=== PATIENT | male | born 1945 | race Caucasian/White ===

== ENCOUNTER 2016-10-02 09:52 | Outpatient (CLI) | payer MEDICARE, OTHER ==
[2016-10-02 13:57] LABS: BASOPHILS % (AUTO) 0.6 %; EOSINOPHILS # (AUTO) 0.1 10^3/uL (0.0-0.7); EOSINOPHILS % (AUTO) 2.2 %; HCT - HEMATOCRIT 45.7 % (42.0-52.0); HGB - HEMOGLOBIN 15.5 g/dL (14.0-18.0); LYMPHOCYTES % (AUTO) 31.9 %; MEAN CORPUSCULAR HEMOGLOBIN 33.9 pg (27.0-31.0); MEAN CORPUSCULAR HGB CONC 33.9 g/dL (32.0-36.0); MEAN PLATELET VOLUME 9.6 fL (7.4-11.4); MONOCYTES # (AUTO) 0.6 10^3/uL (0.0-1.0); MONOCYTES % (AUTO) 9.3 %; NEUTROPHILS # (AUTO) 3.6 10^3/uL (1.5-6.6); RED BLOOD COUNT 4.57 10^6/uL (4.70-6.10); RED CELL DISTRIBUTION WIDTH 13.5 % (12.0-15.0); UNCORRECTED WHITE BLOOD COUNT 6.3 x10^3/uL; WHITE BLOOD COUNT 6.3 x10^3/uL (4.8-10.8)
[2016-10-02 14:39] LABS: ALBUMIN/GLOBULIN RATIO 1.4 (1.0-2.2); BUN - BLOOD UREA NITROGEN 15 mg/dL (6-20); CALCIUM 9.3 mg/dL (8.5-10.3); CARBON DIOXIDE - CO2 27 mmol/L (21-32); CHLORIDE 103 mmol/L (101-111); CHOL/HDL RATIO 2.9 (<5.0); CHOLESTEROL 180 mg/dL; CREATININE 1.1 mg/dL (0.6-1.2); GFR - MDRD 66 (>89); GLUCOSE 87 mg/dL (70-100); HDL CHOLESTEROL 62 mg/dL; LDL/HDL RATIO 1.4 (<3.6); SODIUM 138 mmol/L (135-145); TOTAL PROTEIN 7.5 g/dL (6.7-8.2); TRIGLYCERIDES 151 mg/dL; URIC ACID 3.9 mg/dL (2.6-7.2); VLDL CHOLESTEROL 30 mg/dL
== END 2016-10-02 09:53 | disposition home or self-care (01) ==
LOC: LAB.N 09:52
PROVIDERS: ATTEND Family Medicine
DX: I10 Essential (primary) hypertension (principal); Z51.81 Encounter for therapeutic drug level monitoring; M10.9 Gout, unspecified
CPT/HCPCS: 36415; 80053; 80061; 84550; 85025

== ENCOUNTER 2017-04-17 08:00 | Outpatient (CLI) | payer MEDICARE, OTHER ==
[2017-04-17 13:06] LABS: BASOPHILS % (AUTO) 0.6 %; EOSINOPHILS # (AUTO) 0.1 10^3/uL (0.0-0.7); EOSINOPHILS % (AUTO) 1.5 %; HGB - HEMOGLOBIN 15.2 g/dL (14.0-18.0); LYMPHOCYTES # (AUTO) 1.6 10^3/uL (1.5-3.5); LYMPHOCYTES % (AUTO) 19.5 %; MEAN CORPUSCULAR HEMOGLOBIN 34.1 pg (27.0-31.0); MEAN CORPUSCULAR HGB CONC 34.1 g/dL (32.0-36.0); MEAN CORPUSCULAR VOLUME 99.8 fL (80.0-94.0); MEAN PLATELET VOLUME 9.8 fL (7.4-11.4); MONOCYTES % (AUTO) 11.9 %; NEUTROPHILS # (AUTO) 5.3 10^3/uL (1.5-6.6); NEUTROPHILS % (AUTO) 66.5 %; PLT - PLATELET COUNT 161 10^3/uL (130-450); RED BLOOD COUNT 4.45 10^6/uL (4.70-6.10); RED CELL DISTRIBUTION WIDTH 13.1 % (12.0-15.0)
[2017-04-17 13:28] LABS: ALBUMIN 4.3 g/dL (3.2-5.5); ALBUMIN/GLOBULIN RATIO 1.4 (1.0-2.2); ALKALINE PHOSPHATASE 57 IU/L (42-121); ALT ALANINE AMINOTRANSFERASE 14 IU/L (10-60); AST ASPARTATE AMINOTRANSFERASE 24 IU/L (10-42); BILIRUBIN,TOTAL 0.9 mg/dL (0.2-1.0); BUN - BLOOD UREA NITROGEN 16 mg/dL (6-20); CARBON DIOXIDE - CO2 25 mmol/L (21-32); CHLORIDE 105 mmol/L (101-111); CHOLESTEROL 174 mg/dL; CREATININE 0.9 mg/dL (0.6-1.2); GFR - MDRD 83 (>89); GLUCOSE 96 mg/dL (70-100); HDL CHOLESTEROL 58 mg/dL; LDL CHOLESTEROL,CALCULATED 89 mg/dL; LDL/HDL RATIO 1.5 (<3.6); SODIUM 137 mmol/L (135-145); TOTAL PROTEIN 7.3 g/dL (6.7-8.2); VLDL CHOLESTEROL 27 mg/dL
== END 2017-04-17 08:01 | disposition home or self-care (01) ==
LOC: LAB.N 08:00
PROVIDERS: ATTEND Family Medicine
DX: I10 Essential (primary) hypertension (principal); E78.9 Disorder of lipoprotein metabolism, unspecified; Z51.81 Encounter for therapeutic drug level monitoring
CPT/HCPCS: 36415; 80053; 80061; 83721; 85025

== ENCOUNTER 2017-10-21 13:52 | Outpatient (CLI) | payer MEDICARE, OTHER ==
--- NOTE | 2017-10-21 15:10 | XRAY Report ---
Procedure Date: 10/21/2017 Accession Number: [id number] / [id number] Procedure: XRN - Chest 2 View X-Ray CPT Code: 81318 FULL RESULT: EXAM: CHEST RADIOGRAPHY EXAM DATE: 10/21/2017 02:15 PM. CLINICAL HISTORY: Dyspnea. COMPARISON: 04/07/2014 11:54 AM. TECHNIQUE: 2 views. FINDINGS: Lungs/Pleura: There is coarse reticular opacity within the left parahilar region and left upper lobe. There is some associated architectural distortion. Costophrenic sulcus blunting may represent small effusions. There is no evidence of pneumothorax. Mediastinum: Heart and mediastinal contours are unremarkable. Other: None. IMPRESSION: 1. Lungs are well-expanded. Normal heart size. 2. There is coarse reticular opacity within the left upper chest. There is some associated architectural distortion. This is suspicious for pneumonia. Interval follow-up film post treatment is recommended to demonstrate resolution of these opacities and to exclude underlying pathology. 3. No evidence of pneumothorax. RADIA
== END 2017-10-21 13:53 | disposition home or self-care (01) ==
LOC: DI.N 13:52
PROVIDERS: ATTEND Nurse Practitioner Gerontology
DX: R06.00 Dyspnea, unspecified (principal)
CPT/HCPCS: 71046

== ENCOUNTER 2017-10-24 09:49 | Outpatient (CLI) | payer MEDICARE, OTHER ==
[2017-10-24 12:14] LABS: BASOPHILS % (AUTO) 0.4 %; EOSINOPHILS # (AUTO) 0.3 10^3/uL (0.0-0.7); EOSINOPHILS % (AUTO) 2.4 %; HGB - HEMOGLOBIN 14.2 g/dL (14.0-18.0); LYMPHOCYTES # (AUTO) 1.1 10^3/uL (1.5-3.5); LYMPHOCYTES % (AUTO) 9.1 %; MEAN CORPUSCULAR HEMOGLOBIN 34.3 pg (27.0-31.0); MEAN CORPUSCULAR VOLUME 100.8 fL (80.0-94.0); MEAN PLATELET VOLUME 8.8 fL (7.4-11.4); MONOCYTES # (AUTO) 1.1 10^3/uL (0.0-1.0); MONOCYTES % (AUTO) 9.5 %; NEUTROPHILS # (AUTO) 9.2 10^3/uL (1.5-6.6); NEUTROPHILS % (AUTO) 78.6 %; PLT - PLATELET COUNT 274 10^3/uL (130-450); RED BLOOD COUNT 4.13 10^6/uL (4.70-6.10); RED CELL DISTRIBUTION WIDTH 13.2 % (12.0-15.0); WHITE BLOOD COUNT 11.7 x10^3/uL (4.8-10.8)
[2017-10-24 19:21] LABS: ALBUMIN 3.4 g/dL (3.2-5.5); ALBUMIN/GLOBULIN RATIO 0.9 (1.0-2.2); ALKALINE PHOSPHATASE 69 IU/L (42-121); ALT ALANINE AMINOTRANSFERASE 52 IU/L (10-60); AST ASPARTATE AMINOTRANSFERASE 39 IU/L (10-42); BILIRUBIN,TOTAL 0.7 mg/dL (0.2-1.0); BUN - BLOOD UREA NITROGEN 18 mg/dL (6-20); CALCIUM 8.8 mg/dL (8.5-10.3); CARBON DIOXIDE - CO2 27 mmol/L (21-32); CHLORIDE 100 mmol/L (101-111); CHOL/HDL RATIO 2.3 (<5.0); CHOLESTEROL 144 mg/dL; CREATININE 0.9 mg/dL (0.6-1.2); GFR - MDRD 83 (>89); GLUCOSE 71 mg/dL (70-100); HDL CHOLESTEROL 63 mg/dL; LDL CHOLESTEROL,CALCULATED 66 mg/dL; SODIUM 134 mmol/L (135-145); TOTAL PROTEIN 7.1 g/dL (6.7-8.2); VLDL CHOLESTEROL 15 mg/dL
== END 2017-10-24 09:50 | disposition home or self-care (01) ==
LOC: LAB.N 09:49
PROVIDERS: ATTEND Family Medicine
DX: E78.5 Hyperlipidemia, unspecified (principal); I10 Essential (primary) hypertension
CPT/HCPCS: 36415; 80053; 80061; 83721; 85025

== ENCOUNTER 2017-10-30 12:11 | Outpatient (CLI) | payer MEDICARE, OTHER ==
--- NOTE | 2017-10-30 13:27 | XRAY Report ---
Procedure Date: 10/30/2017 Accession Number: [id number] / [id number] Procedure: XRN - Chest 2 View X-Ray CPT Code: 94318 FULL RESULT: EXAM: CHEST RADIOGRAPHY EXAM DATE: 10/30/2017 12:28 PM. CLINICAL HISTORY: Dyspnea. COMPARISON: 10/21/2017 chest x-ray, 03/21/[address] TECHNIQUE: 2 views. FINDINGS: Lungs/Pleura: Coarse left upper lobe reticulation has not changed appreciably compared to the prior study. A faint air-fluid level is present adjacent to the left hilum which may reflect an infected bulla. The right lung is clear. No definite pleural effusion or pneumothorax. Mediastinum: Heart and mediastinal contours are unremarkable. Other: Bony demineralization and degenerative change in the spine IMPRESSION: Persistent abnormal chest x-ray not appreciably changed compared with 10/21/2017. Consider further evaluation by chest CT. RADIA
== END 2017-10-30 12:12 | disposition home or self-care (01) ==
LOC: DI.N 12:11
PROVIDERS: ATTEND Family Medicine
DX: R06.00 Dyspnea, unspecified (principal); R93.8 Abnormal findings on diagnostic imaging of other specified body structures
CPT/HCPCS: 71046

== ENCOUNTER 2017-10-31 14:47 | Outpatient (CLI) | payer MEDICARE, OTHER ==
--- NOTE | 2017-10-31 15:48 | CT Report ---
Reason: ABNORMAL CHEST XRAY,LUNG ABSCESS,COPD,ACUTE EXACER Procedure Date: 10/31/2017 Accession Number: [id number] / [id number] Procedure: CT - Chest W/O CPT Code: FULL RESULT: EXAM: CT CHEST EXAM DATE: 10/31/2017 03:02 PM. CLINICAL HISTORY: Follow-up abnormal chest x-ray 10/30/2017 with possible air-fluid level left chest COMPARISONS: Chest CT 03/21/2014 and chest x-ray 10/30/2017. TECHNIQUE: Routine helical CT imaging was performed through the chest. IV contrast: None. Reconstructions: Coronal and sagittal. In accordance with CT protocol optimization, one or more of the following dose reduction techniques were utilized for this exam: automated exposure control, adjustment of mA and/or KV based on patient size, or use of iterative reconstructive technique. FINDINGS: Lungs/Pleura: Advanced emphysematous changes including hyperexpansion, centrilobular emphysema, peripheral bulla formation, chronic interstitial thickening and subpleural cysts. There is left upper lobe volume loss with multiple cystic spaces admixed with soft tissue density/consolidation and air bronchograms, improved compared with 03/21/2014. The largest cystic space measures approximately 4.3 x 3.7 cm axial. The left upper lobe findings are likely the sequela of prior inflammation and chronic scarring. The possible air bronchogram seen on the prior chest x-ray is not confirmed by chest CT. There is no pleural effusion or pneumothorax. Mediastinum: Several scattered nonspecific mediastinal lymph nodes are present. No pathologically enlarged mediastinal or hilar lymph nodes are seen. Heart size is normal. No pericardial effusion. Bones: Generative change in the spine without bone destruction. Included upper Abdomen: Small hiatal hernia Other: None. IMPRESSION: Extensive emphysematous change throughout the lungs with left upper lobe volume loss, cyst formation, and scarring secondary to prior infection/inflammation. No definite findings to suggest a superimposed acute process are seen at this time. Comment: The extensive changes in the left upper lobe could obscure an underlying pulmonary nodule. RADIA
== END 2017-10-31 14:48 | disposition home or self-care (01) ==
LOC: DI 14:47
PROVIDERS: ATTEND Family Medicine
DX: J44.1 Chronic obstructive pulmonary disease with (acute) exacerbation (principal); J18.0 Bronchopneumonia, unspecified organism; R91.8 Other nonspecific abnormal finding of lung field
CPT/HCPCS: 71250

== ENCOUNTER 2017-11-05 23:27 | Emergency (ER) | payer MEDICARE, OTHER ==
[2017-11-06] MEDS ORDERED: IOPAMIDOL-300 100 ML VIAL ONE (00:12)
[2017-11-06 00:18] LABS: BILIRUBIN,URINE NEGATIVE (NEGATIVE); GLUCOSE, URINE (UA) NEGATIVE (NEGATIVE); KETONES,URINE (UA) TRACE mg/dL (NEGATIVE); LEUKOCYTE ESTERASE, URINE NEGATIVE (NEGATIVE); NITRITE,URINE NEGATIVE (NEGATIVE); OCCULT BLOOD,URINE NEGATIVE (NEGATIVE); PROTEIN,URINE NEGATIVE (NEGATIVE); UROBILINOGEN,URINE 0.2 (NORMAL) E.U./dL (NORMAL)
[2017-11-06 00:19] LABS: CLARITY,URINE CLEAR (CLEAR)
[2017-11-06 00:19] LABS: BASOPHILS # (AUTO) 0.1 10^3/uL (0.0-0.1); BASOPHILS % (AUTO) 1.2 %; EOSINOPHILS # (AUTO) 0.5 10^3/uL (0.0-0.7); EOSINOPHILS % (AUTO) 7.5 %; HGB - HEMOGLOBIN 12.7 g/dL (14.0-18.0); LYMPHOCYTES # (AUTO) 1.3 10^3/uL (1.5-3.5); LYMPHOCYTES % (AUTO) 19.3 %; MEAN CORPUSCULAR HEMOGLOBIN 34.3 pg (27.0-31.0); MEAN CORPUSCULAR HGB CONC 34.9 g/dL (32.0-36.0); MEAN CORPUSCULAR VOLUME 98.3 fL (80.0-94.0); MEAN PLATELET VOLUME 8.3 fL (7.4-11.4); MONOCYTES # (AUTO) 0.7 10^3/uL (0.0-1.0); MONOCYTES % (AUTO) 11.3 %; NEUTROPHILS % (AUTO) 60.7 %; PLT - PLATELET COUNT 242 10^3/uL (130-450); RED BLOOD COUNT 3.69 10^6/uL (4.70-6.10); RED CELL DISTRIBUTION WIDTH 13.1 % (12.0-15.0); WHITE BLOOD COUNT 6.6 x10^3/uL (4.8-10.8)
[2017-11-06 00:28] LABS: ALBUMIN 3.1 g/dL (3.2-5.5); ALBUMIN/GLOBULIN RATIO 0.9 (1.0-2.2); BILIRUBIN,TOTAL 0.8 mg/dL (0.2-1.0); CALCIUM 8.5 mg/dL (8.5-10.3); CREATININE 1.1 mg/dL (0.6-1.2); TOTAL PROTEIN 6.7 g/dL (6.7-8.2)
[2017-11-06] MEDS ORDERED: IOPAMIDOL-300 100 ML VIAL IVP ONE (00:48)
--- NOTE | 2017-11-06 01:10 | CT Report ---
Reason: right lower quadrant pain Procedure Date: 11/06/2017 Accession Number: [id number] / [id number] Procedure: CT - Abdomen/Pelvis W/ CPT Code: FULL RESULT: EXAM: CT ABDOMEN AND PELVIS EXAM DATE: 11/06/2017 12:50 AM. CLINICAL HISTORY: Abdominal pain with nausea and vomiting. COMPARISONS: ABDOMEN/PELVIS W/ 02/13/2016. TECHNIQUE: Routine helical CT imaging was performed through the abdomen and pelvis. IV contrast: ISOVUE 300 100mL. Enteric contrast: No. Reconstructions: Coronal and sagittal. In accordance with CT protocol optimization, one or more of the following dose reduction techniques were utilized for this exam: automated exposure control, adjustment of mA and/or KV based on patient size, or use of iterative reconstructive technique. FINDINGS: Lung Bases: Emphysema. Mild bibasilar atelectasis. Small hiatal hernia. Liver: Possible fatty infiltration. Gallbladder/Bile Ducts: Unremarkable. Spleen: Normal. Pancreas: Normal. Adrenal Glands: Normal. Kidneys: Normal. No masses or hydronephrosis. Peritoneal Cavity/Bowel: Duodenal diverticulum. Colonic diverticula without definite diverticulitis. No bowel obstruction seen. No free air or free fluid. No lymphadenopathy. Status post appendectomy. Pelvic Organs: Normal. The bladder and visualized pelvic organs are within normal limits. Vasculature: Moderate atherosclerosis. Infrarenal saccular aortic aneurysm measuring 3.0 cm. Bones: Osteopenia. Mild grade 1 degenerative spondylolisthesis at L4-L5. Other: None. IMPRESSION: 1. Colonic diverticula with no definite diverticulitis. 2. Status post appendectomy. No acute inflammatory or obstructive process identified. 3. Possible mild fatty liver. 4. Hiatal hernia. 5. Small saccular infrarenal aortic aneurysm measuring 3.0 cm. RADIA
[2017-11-06] MEDS ORDERED: DICYCLOMINE 10 MG CAPSULE PO STA (01:23)
[2017-11-06] MEDS ORDERED: ONDANSETRON ODT 4 MG TABLET TL STA (01:23)
[2017-11-06 01:27] VITALS: BP 133/70
--- NOTE | 2017-11-06 01:40 | ED Physician Documentation ---
PD HPI ABD PAIN - Stated complaint Stated Complaint: ABDOMINAL PAIN - Chief complaint Chief Complaint: Abd Pain - History obtained from History obtained from: Patient - History of Present Illness Timing - onset: Today Timing - details: Gradual onset, Still present Quality: Aching, Sharp Location: RLQ Worsened by: Position, Palpation Associated symptoms: Nausea. No: Fever, Vomiting, Hematemesis, Diarrhea, Constipation Similar symptoms before: Work up / diagnostics, Treatment Recently seen: Not recently seen - Additional information Additional information: Patient is a 71 year old male who is presenting to the emergency department for abdominal pain. patient states that ever since he had his appendix taken out he has had intermittent right lower quadrant pain. patient states that he had not had the pain in about 6 months but tonight he had the right sided pain with nausea. Review of Systems Ten Systems: 10 systems reviewed and negative Constitutional: denies: Fever, Chills GI: reports: Abdominal Pain, Nausea. denies: Abdominal Swelling, Constipation PD PAST MEDICAL HISTORY - Past Medical History Past Medical History: Yes Cardiovascular: Hypertension Respiratory: COPD, Emphysema, Other Endocrine/Autoimmune: None GI: Ulcers : None Psych: None Musculoskeletal: Osteoarthritis Derm: None - Past Surgical History Past Surgical History: Yes Ortho: Other HEENT: Tonsil/Adenoidectomy - Present Medications Home Medications: Ambulatory Orders Medication Instructions Recorded Confirmed Aspirin [Aspir 81] 81 mg PO DAILY 08/18/12 02/13/16 Esomeprazole Magnesium [Nexium] 40 mg PO DAILY 08/18/12 02/13/16 Simvastatin [Zocor] 0 mg PO DAILY 08/18/12 02/13/16 Fluticasone/Salmeterol [Advair 2 tab PO DAILY 03/20/14 02/13/16 100-50 Diskus] Tiotropium [Spiriva] 1 puffs INH DAILY 03/20/14 02/13/16 Albuterol Oral Soln 2 mg PO Q6H 02/13/16 02/13/16 Allopurinol [Zyloprim] 300 mg PO DAILY 02/13/16 02/13/16 Cholecalciferol (Vitamin D3) 2,000 unit PO DAILY 02/13/16 02/13/16 [Vitamin D3] Cyanocobalamin (Vitamin B-12) 1,000 mcg PO DAILY 02/13/16 02/13/16 [Vitamin B-12] Felodipine [Felodipine ER] 10 mg PO DAILY 02/13/16 02/13/16 Ferrous Gluconate [Iron] 65 mg PO 02/13/16 Meloxicam 7.5 mg PO DAILY 02/13/16 02/13/16 [place]-3/Dha/Epa/Fish Oil [Fish Oil 1 cap PO DAILY 02/13/16 02/13/16 1,000 mg Softgel] Simvastatin [Zocor] 10 mg PO DAILY 02/13/16 02/13/16 Zinc Oxide [Vitamelts Fast 15 mg PO DAILY 02/13/16 02/13/16 Dissolve] HYDROcod/ACETAM 5/325 [[place] 5/325] 1 tab PO Q4HR PRN #30 tablet 02/14/16 Ipratropium/Albuterol [Duoneb] 3 ml INH Q4HR PRN #0 neb 02/14/16 Polyethylene Glycol 3350 [Miralax] 17 gm PO DAILY packet 02/14/16 amLODIPine [Norvasc] 10 mg PO DAILY tablet 02/14/16 Dicyclomine [Bentyl] 10 mg PO QID #14 capsule 11/06/17 Ondansetron Odt [Zofran] 4 mg TL Q6H PRN #14 tablet 11/06/17 - Allergies Allergies/Adverse Reactions: Allergies Allergy/AdvReac Type Severity Reaction Status Date / Time No Known Drug Allergies Allergy Verified 11/05/17 23:38 - Social History Does the pt smoke?: No Smoking Status: Never smoker Does the pt drink ETOH?: Yes Does the pt have substance abuse?: No - Immunizations Immunizations are current?: Yes PD ED PE NORMAL - Vitals Vital signs reviewed: Yes - General General: Alert and oriented X 3 - HEENT HEENT: Atraumatic, PERRL - Cardiac Cardiac: RRR - Respiratory Respiratory: No respiratory distress - Abdomen Abdomen: Soft - Derm Derm: Normal color, Warm and dry, No rash - Extremities Extremities: No deformity - Neuro Neuro: Alert and oriented X 3, No motor deficit, Normal speech Eye Opening: Spontaneous PD ED PE EXPANDED - Abdomen Abdomen: Tender to palpation, RLQ. No: Rebound, Guarding Results - Vitals Vitals: Vital Signs - 24 hr 11/05/17 11/06/17 23:32 01:27 Temperature 36.5 C 36.9 C Heart Rate 92 80 Respiratory 18 20 Rate Blood Pressure 119/63 133/70 H O2 Saturation 95 94 Oxygen O2 Source Room air - Labs Labs: Laboratory Tests 11/06/17 11/06/17 11/06/17 00:00 00:00 00:05 WBC 6.6 RBC 3.69 L Hgb 12.7 L Hct 36.3 L MCV 98.3 H MCH 34.3 H MCHC 34.9 RDW 13.1 Plt Count 242 MPV 8.3 Neut # (Auto) 4.0 Lymph # (Auto) 1.3 L [place] # (Auto) 0.7 Eos # (Auto) 0.5 Baso # (Auto) 0.1 Absolute Nucleated RBC 0.00 Nucleated RBC % 0.1 Sodium 134 L Potassium 3.7 Chloride 103 Carbon Dioxide 23 Anion Gap 8.0 BUN 14 Creatinine 1.1 Estimated GFR (MDRD) 66 L Glucose 99 Calcium 8.5 Total Bilirubin 0.8 AST 29 ALT 22 Alkaline Phosphatase 80 Total Protein 6.7 Albumin 3.1 L Globulin 3.6 Albumin/Globulin Ratio 0.9 L Lipase 36 Urine Color YELLOW Urine Clarity CLEAR Urine pH 6.0 Ur Specific [place] 1.020 Urine Protein NEGATIVE Urine Glucose (UA) NEGATIVE Urine Ketones TRACE Urine Occult Blood NEGATIVE Urine Nitrite NEGATIVE Urine Bilirubin NEGATIVE Urine Urobilinogen 0.2 (NORMAL) Ur Leukocyte Esterase NEGATIVE Ur Microscopic Review NOT INDICATED Urine Culture Comments NOT INDICATED - Rads (name of study) ct abd and pelvis Radiology: Final report received (no acute intraabdominal abnormalities) PD MEDICAL DECISION MAKING - ED course Complexity details: reviewed old records, reviewed results, re-evaluated patient , considered differential, d/w patient ED course: Patient was seen and examined at bedside. IV access was gained and labs were drawn. Imaging was ordered. When patient returned from imaging results were reviewed. There were no significant abnormalities. patient was treated with bentyl and zofran. patient required no further work up at this time and was stable for discharge with outpatient follow up. - Sepsis Event Vital Signs: Vital Signs - 24 hr 11/05/17 11/06/17 23:32 01:27 Temperature 36.5 C 36.9 C Heart Rate 92 80 Respiratory 18 20 Rate Blood Pressure 119/63 133/70 H O2 Saturation 95 94 Oxygen O2 Source Room air Departure - Departure Disposition: 01 Home, Self Care Clinical Impression: Abdominal pain Condition: Good Instructions: ED Abdominal Pain Unkn Cause Follow-Up: Peter Perkins MD [Primary Care Provider] - Prescriptions: Dicyclomine [Bentyl] 10 mg PO QID #14 capsule Ondansetron Odt [Zofran] 4 mg TL Q6H PRN #14 tablet PRN Reason: Nausea / Vomiting Comments: Your diagnostics today were within normal limits. there were no acute abnormalities on your blood work or imaging. the pain could be secondary to the scar tissue or gas pain. You can take the zofran as needed for nausea and bentyl for abdominal spasm. You should follow up with your doctor if your symptoms persist. You may return to the emergency department at an time for new , worsening or uncontrollable symptoms. Discharge Date/Time: 11/06/17 01:59
== END 2017-11-06 01:59 | disposition home or self-care (01) ==
LOC: ED 23:27
DX: R10.9 Unspecified abdominal pain (principal); R11.0 Nausea; I10 Essential (primary) hypertension; Z79.82 Long term (current) use of aspirin; K57.30 Diverticulosis of large intestine without perforation or abscess without bleeding; K44.9 Diaphragmatic hernia without obstruction or gangrene; I71.4 Abdominal aortic aneurysm, without rupture
CPT/HCPCS: 36415; 74177; 80053; 81003; 83690; 85025; 99283; A9270; Q0162; Q9967; 81001; 87086

== ENCOUNTER 2017-11-07 09:00 | Outpatient (CLI) | payer MEDICARE, OTHER | END 2017-11-07 09:01 | disposition home or self-care (01) | LOC: LAB.R 09:00 | PROVIDERS: ATTEND Internal Medicine Critical Care Medicine | DX: J20.9 Acute bronchitis, unspecified (principal) | CPT/HCPCS: 81599; 87070; 87205 ==

== ENCOUNTER 2018-10-14 08:00 | Outpatient (CLI) | payer MEDICARE, OTHER ==
[2018-10-14 12:31] LABS: BASOPHILS % (AUTO) 0.5 %; EOSINOPHILS # (AUTO) 0.2 10^3/uL (0.0-0.7); EOSINOPHILS % (AUTO) 2.2 %; HGB - HEMOGLOBIN 15.2 g/dL (14.0-18.0); LYMPHOCYTES # (AUTO) 1.3 10^3/uL (1.5-3.5); LYMPHOCYTES % (AUTO) 17.5 %; MEAN CORPUSCULAR HEMOGLOBIN 33.7 pg (27.0-31.0); MEAN PLATELET VOLUME 11.4 fL (7.4-11.4); MONOCYTES # (AUTO) 0.6 10^3/uL (0.0-1.0); MONOCYTES % (AUTO) 8.4 %; NEUTROPHILS # (AUTO) 5.1 10^3/uL (1.5-6.6); PLT - PLATELET COUNT 183 10^3/uL (130-450); RED BLOOD COUNT 4.51 10^6/uL (4.70-6.10); WHITE BLOOD COUNT 7.3 x10^3/uL (4.8-10.8)
[2018-10-14 13:06] LABS: ALBUMIN 4.1 g/dL (3.2-5.5); ALBUMIN/GLOBULIN RATIO 1.4 (1.0-2.2); ALKALINE PHOSPHATASE 60 IU/L (42-121); ALT ALANINE AMINOTRANSFERASE 15 IU/L (10-60); AST ASPARTATE AMINOTRANSFERASE 21 IU/L (10-42); BILIRUBIN,TOTAL 1.1 mg/dL (0.2-1.0); BUN - BLOOD UREA NITROGEN 17 mg/dL (6-20); CALCIUM 9.3 mg/dL (8.5-10.3); CARBON DIOXIDE - CO2 26 mmol/L (21-32); CHLORIDE 103 mmol/L (101-111); CHOL/HDL RATIO 2.2 (<5.0); CHOLESTEROL 175 mg/dL; CREATININE 0.9 mg/dL (0.6-1.2); GFR - MDRD 82 (>89); GLUCOSE 106 mg/dL (70-100); HDL CHOLESTEROL 79 mg/dL; LDL CHOLESTEROL,CALCULATED 84 mg/dL; LDL/HDL RATIO 1.1 (<3.6); SODIUM 141 mmol/L (135-145); TOTAL PROTEIN 7.1 g/dL (6.7-8.2); VLDL CHOLESTEROL 12 mg/dL
== END 2018-10-14 23:59 | disposition home or self-care (01) ==
LOC: LAB.N 08:00
PROVIDERS: ATTEND Physician Assistant Medical
DX: E78.5 Hyperlipidemia, unspecified (principal); I10 Essential (primary) hypertension
CPT/HCPCS: 36415; 80053; 80061; 83721; 84443; 85025

== ENCOUNTER 2019-01-16 15:11 | Emergency (ER) | payer MEDICARE, OTHER ==
--- NOTE | 2019-01-16 17:22 | ED Physician Documentation ---
PD HPI HEENT - Stated complaint Stated Complaint: RT NASAL PASSAGE OBSTRUCTION - Chief complaint Chief Complaint: Heent - History obtained from History obtained from: Patient - History of Present Illness Timing - onset: Today Timing - duration: Hours (2) Timing - details: Abrupt onset Pain level now: 0 Location: Nose Recently seen: Not recently seen - Additional information Additional information: This is a 73-year-old man who frequently uses a plastic nasal cost controller in his nostrils. They are normally connected with a tab between the 2 expanders but he does not like it on the outside of his nose so he breaks it off and puts one in each side. He says he is done this for years and never had a problem but then he put one in today and about 2 hours ago he went to get it out and he could not pull it out and shoved it back and further. He denies any pain. He did get a little bit of blood when he was trying to remove it he thinks he scratched the inside of his nose. Not really having any difficulty breathing but he says he d oes have COPD and so he feels like it is affecting that a little bit. Review of Systems Constitutional: denies: Fever Nose: reports: Foreign Body. denies: Epistaxis PD PAST MEDICAL HISTORY - Past Medical History Cardiovascular: Hypertension Respiratory: COPD, Emphysema, Other Endocrine/Autoimmune: None GI: Ulcers : None Psych: None Musculoskeletal: Osteoarthritis Derm: None - Past Surgical History Past Surgical History: Yes Ortho: Other HEENT: Tonsil/Adenoidectomy - Present Medications Home Medications: Ambulatory Orders Medication Instructions Recorded Confirmed Aspirin [Aspir 81] 81 mg PO DAILY 08/18/12 02/13/16 Esomeprazole Magnesium [Nexium] 40 mg PO DAILY 08/18/12 02/13/16 Simvastatin [Zocor] 0 mg PO DAILY 08/18/12 02/13/16 Fluticasone/Salmeterol [Advair 2 tab PO DAILY 03/20/14 02/13/16 100-50 Diskus] Tiotropium [Spiriva] 1 puffs INH DAILY 03/20/14 02/13/16 Albuterol Oral Soln 2 mg PO Q6H 02/13/16 02/13/16 Allopurinol [Zyloprim] 300 mg PO DAILY 02/13/16 02/13/16 Cholecalciferol (Vitamin D3) 2,000 unit PO DAILY 02/13/16 02/13/16 [Vitamin D3] Cyanocobalamin (Vitamin B-12) 1,000 mcg PO DAILY 02/13/16 02/13/16 [Vitamin B-12] Felodipine [Felodipine ER] 10 mg PO DAILY 02/13/16 02/13/16 Ferrous Gluconate [Iron] 65 mg PO 02/13/16 Meloxicam 7.5 mg PO DAILY 02/13/16 02/13/16 [place]-3/Dha/Epa/Fish Oil [Fish Oil 1 cap PO DAILY 02/13/16 02/13/16 1,000 mg Softgel] Simvastatin [Zocor] 10 mg PO DAILY 02/13/16 02/13/16 Zinc Oxide [Vitamelts Fast 15 mg PO DAILY 02/13/16 02/13/16 Dissolve] HYDROcod/ACETAM 5/325 [[place] 5/325] 1 tab PO Q4HR PRN #30 tablet 02/14/16 Ipratropium/Albuterol [Duoneb] 3 ml INH Q4HR PRN #0 neb 02/14/16 Polyethylene Glycol 3350 [Miralax] 17 gm PO DAILY packet 02/14/16 amLODIPine [Norvasc] 10 mg PO DAILY tablet 02/14/16 Dicyclomine [Bentyl] 10 mg PO QID #14 capsule 11/06/17 Ondansetron Odt [Zofran] 4 mg TL Q6H PRN #14 tablet 11/06/17 - Allergies Allergies/Adverse Reactions: Allergies Allergy/AdvReac Type Severity Reaction Status Date / Time No Known Drug Allergies Allergy Verified 01/16/19 15:19 - Social History Does the pt smoke?: No Smoking Status: Never smoker Does the pt drink ETOH?: Yes Does the pt have substance abuse?: No - Immunizations Immunizations are current?: Yes PD ED PE NORMAL - Vitals Vital signs reviewed: Yes - General General: Alert and oriented X 3, No acute distress, Well developed/nourished - HEENT HEENT: Other (There is a plastic foreign body in the nose quite deep past the turbinates) - Respiratory Respiratory: No respiratory distress - Derm Derm: Normal color, Warm and dry, No rash Results - Vitals Vitals: Vital Signs - 24 hr 01/16/19 15:16 Temperature 36.4 C L Heart Rate 87 Respiratory 17 Rate Blood Pressure 149/68 H O2 Saturation 93 Oxygen O2 Source Room air Procedures - FB removal FB location: Nose FB removal preparation: Local anesthesia-specify (Tetracaine), Afrin Removal method: Foreceps FB removal aftercare: No complications, Patient tolerated well, Removed successfully PD MEDICAL DECISION MAKING - ED course Complexity details: d/w patient ED course: Patient tolerated the procedure well. There was no blood. I counseled him about removing the tab that prevents this from going further into the nose. Departure - Departure Disposition: 01 Home, Self Care Clinical Impression: Foreign body in nose Qualifiers: Encounter type: initial encounter Qualified Code(s): T17.1XXA - Foreign body in nostril, initial encounter Condition: Good Instructions: ED Foreign Body Nasal Follow-Up: Pankaj Cervantes PA-C [Primary Care Provider] - Comments: Be careful placing things in your nose that can be pushed back up in there.
[2019-01-16] MEDS ORDERED: TETRACAINE 0.5% OPHTH DROPS 4 ML RIGHTEYE ONE (17:28)
[2019-01-16] MEDS ORDERED: OXYMETAZOLINE HCL 100 SPRAYS BOTTLE NAS STA (17:29)
[2019-01-16 18:36] VITALS: BP 137/74
== END 2019-01-16 18:36 | disposition home or self-care (01) ==
LOC: ED 15:11
DX: T17.1XXA Foreign body in nostril, initial encounter (principal); X58.XXXA Exposure to other specified factors, initial encounter; J43.9 Emphysema, unspecified; I10 Essential (primary) hypertension; Z79.82 Long term (current) use of aspirin
CPT/HCPCS: 30300; 99282; A9270

== ENCOUNTER 2019-04-17 11:46 | Inpatient (IN) | payer MEDICARE, OTHER ==
[2019-04-17] MEDS ORDERED: methylPREDNISolone SUCCINATE 125 MG/2 ML VIAL IVP STA (12:13)
[2019-04-17] MEDS ORDERED: cefTRIAXone 2 GM in SODIUM CHLORIDE 0.9% MINIBAG 100 ML IV STA (12:13)
[2019-04-17] MEDS ORDERED: LEVALBUTEROL 1.25 MG/3 ML NEB INH STA (12:13)
[2019-04-17] MEDS ORDERED: IPRATROPIUM/ALBUTEROL 3 ML NEB INH STA (12:13)
--- NOTE | 2019-04-17 12:15 | ED Physician Documentation ---
PD HPI DYSPNEA - Stated complaint Stated Complaint: SOA - Chief complaint Chief Complaint: Resp - History obtained from History obtained from: Patient (73-year-old gentleman with oxygen dependent COPD presents with increased shortness of breath and minimally productive cough for the last 6 days. Its associated with a fever to 100.2 last night which defervesced today. His oxygen requirement has gone from 3 L which is his baseline to 5 L. He was recently on a steroid taper and is now on prednisone at 10 mg a day. Cough is productive of minimal white to clear sputum. He denies any chest pain or pedal edema.) Review of Systems Ten Systems: 10 systems reviewed and negative Constitutional: reports: Fever, Chills Throat: denies: Sore throat Cardiac: denies: Chest pain / pressure, Palpitations, Pedal edema, Calf pain Respiratory: reports: Dyspnea, Cough, Wheezing. denies: Hemoptysis GI: denies: Abdominal Pain PD PAST MEDICAL HISTORY - Past Medical History Past Medical History: Yes Cardiovascular: Hypertension Respiratory: COPD, Emphysema, Other Endocrine/Autoimmune: None GI: Ulcers : None Psych: None Musculoskeletal: Osteoarthritis Derm: None - Past Surgical History Past Surgical History: Yes Ortho: Other HEENT: Tonsil/Adenoidectomy - Present Medications Home Medications: Ambulatory Orders Medication Instructions Recorded Confirmed Aspirin [Aspir 81] 81 mg PO DAILY 08/18/12 04/17/19 Allopurinol [Zyloprim] 300 mg PO DAILY 02/13/16 04/17/19 Cholecalciferol (Vitamin D3) 2,000 unit PO DAILY 02/13/16 04/17/19 [Vitamin D3] Cyanocobalamin (Vitamin B-12) 1,000 mcg PO DAILY 02/13/16 04/17/19 [Vitamin B-12] Felodipine [Felodipine ER] 10 mg PO DAILY 02/13/16 04/17/19 Ferrous Gluconate [Iron] 65 mg PO DAILYWM 02/13/16 04/17/19 [place]-3/Dha/Epa/Fish Oil [Fish Oil 1 cap PO DAILY 02/13/16 04/17/19 1,000 mg Softgel] Simvastatin [Zocor] 10 mg PO QPM 02/13/16 04/17/19 Albuterol 2.5 mg INH Q4H PRN 04/17/19 04/17/19 Albuterol Sulfate [Proair Hfa 2 puffs INH Q4H PRN 04/17/19 04/17/19 Inhaler] Diclofenac Sodium 2 g TOP BID PRN 04/17/19 04/17/19 Duloxetine HCl 60 mg PO DAILY 04/17/19 04/17/19 Fluticasone/Salmeterol [Advair 1 puffs INH BID 04/17/19 04/17/19 250-50 Diskus] Loratadine [Claritin] 10 mg PO DAILY 04/17/19 04/17/19 Montelukast [Singulair] 10 mg PO QPM 04/17/19 04/17/19 Omeprazole 20 mg PO BID 04/17/19 04/17/19 Sildenafil Citrate [Viagra] 100 mg PO DAILY PRN 04/17/19 04/17/19 Tiotropium [place] [Spiriva 2 puffs INH DAILY 04/17/19 04/17/19 Respimat] polyethylene glycoL 3350 [Miralax] 17 gm PO DAILY PRN 04/17/19 04/17/19 predniSONE [Deltasone] 10 mg PO DAILYWM 04/17/19 04/17/19 traZODone [Desyrel] 50 mg PO HS PRN 04/17/19 04/17/19 - Allergies Allergies/Adverse Reactions: Allergies Allergy/AdvReac Type Severity Reaction Status Date / Time No Known Drug Allergies Allergy Verified 04/17/19 12:03 - Social History Does the pt smoke?: No Smoking Status: Former smoker Does the pt drink ETOH?: Yes Does the pt have substance abuse?: No - Immunizations Immunizations are current?: Yes - POLST Patient has POLST: No PD ED PE NORMAL - Vitals Vital signs reviewed: Yes (Tachycardic, hypoxic, tachypneic) - General General: Alert and oriented X 3, No acute distress, Other (He looks better than the triage vitals would portend, he is minimally tachypneic. Speaking in full sentences but not full paragraphs.) - HEENT HEENT: PERRL, EOMI - Neck Neck: Supple, no meningeal sign, No bony TTP - Cardiac Cardiac: RRR, No murmur - Respiratory Respiratory: Other (Mild respiratory distress, speaking in full sentences but not full paragraphs, diminished throughout without significant focal findings.) - Abdomen Abdomen: Non tender - Back Back: No CVA TTP, No spinal TTP - Derm Derm: Normal color - Extremities Extremities: No edema, No calf tenderness / cord - Neuro Neuro: Alert and oriented X 3, Normal speech Results - Vitals Vitals: Vital Signs - 24 hr 04/17/19 04/17/19 04/17/19 12:04 12:13 12:20 Temperature 37.1 C Heart Rate 125 H 107 H 96 Respiratory 36 H 30 H 18 Rate Blood Pressure 125/78 129/77 O2 Saturation 78 L 95 04/17/19 04/17/19 04/17/19 12:36 13:06 13:30 Temperature Heart Rate 96 94 93 Respiratory 24 24 20 Rate Blood Pressure 126/68 127/80 128/78 O2 Saturation 94 93 93 Oxygen O2 Source Nasal cannula Oxygen Flow Rate 3 - EKG (time done) 1223 Rate: Rate (enter#) (94) Rhythm: NSR (w pac) [place]: Normal Intervals: RBBB, Other (LAFB) Ischemia: Normal ST segments Computer interpretation: Agree with computer - Labs Labs: Laboratory Tests 04/17/19 04/17/19 04/17/19 12:12 12:12 12:12 WBC 9.3 RBC 4.76 Hgb 16.3 Hct 47.3 MCV 99.4 H MCH 34.2 H MCHC 34.5 RDW 12.8 Plt Count 194 MPV 10.5 Neut # (Auto) 8.2 H Lymph # (Auto) 0.5 L [place] # (Auto) 0.5 Eos # (Auto) 0.0 Baso # (Auto) 0.0 Absolute Nucleated RBC 0.00 Nucleated RBC % 0.0 VBG pH VBG pCO2 VBG pO2 VBG HCO3 VBG Total CO2 VBG O2 Saturation VBG Base Excess Sodium 138 Potassium 4.7 Chloride 98 L Carbon Dioxide 24 Anion Gap 16.0 H BUN 23 H Creatinine 1.1 Estimated GFR (MDRD) 65 L Glucose 120 H Lactic Acid 2.9 H Calcium 9.6 Total Bilirubin 1.0 AST 50 H ALT 26 Alkaline Phosphatase 62 Troponin I High Sens Total Protein 8.1 Albumin 4.5 Globulin 3.6 Albumin/Globulin Ratio 1.3 Lipase 30 Influenza A (Rapid) Influenza B (Rapid) 04/17/19 04/17/19 04/17/19 12:13 13:05 13:15 WBC RBC Hgb Hct MCV MCH MCHC RDW Plt Count MPV Neut # (Auto) Lymph # (Auto) [place] # (Auto) Eos # (Auto) Baso # (Auto) Absolute Nucleated RBC Nucleated RBC % VBG pH 7.471 H VBG pCO2 33.1 L VBG pO2 65.5 H VBG HCO3 23.6 VBG Total CO2 24.6 VBG O2 Saturation 94.1 H VBG Base Excess 0.7 Sodium Potassium Chloride Carbon Dioxide Anion Gap BUN Creatinine Estimated GFR (MDRD) Glucose Lactic Acid Calcium Total Bilirubin AST ALT Alkaline Phosphatase Troponin I High Sens 14.9 Total Protein Albumin Globulin Albumin/Globulin Ratio Lipase Influenza A (Rapid) Negative Influenza B (Rapid) Negative - Rads (name of study) 1v chest Radiology: EMP read contemporaneously (GILDARDO GOMEZ) PD MEDICAL DECISION MAKING - ED course ED course: 73-year-old gentleman with COPD presents with increased productive cough, fever last night and respiratory distress and is found to have pneumonia which is treated with Rocephin and Zithromax. Had 3 nebs in the department here as well as IV Solu-Medrol and still mildly labored breathing and tachycardia. Spoke with Dr. Bullock for admission at 1:40 PM. - Critical Care Time(min): 38 Time Includes: Direct patient care, Review records, Reassess patient, Document care, Coordinate care, Medical consult Data interpretation: Labs, Pulse ox, ABG, CXR Procedures included in critical care time: Peripheral IV Procedures excluded from critical care time: EKG Departure - Departure Disposition: 66 [facility] DC/Xfer Clinical Impression: Pneumonia COPD (chronic obstructive pulmonary disease) Qualifiers: COPD type: unspecified COPD Qualified Code(s): J44.9 - Chronic obstructive pulmonary disease, unspecified Condition: Serious Discharge Date/Time: 04/17/19 14:42
--- NOTE | 2019-04-17 12:45 | XRAY Report ---
Reason: dyspnea copd Procedure Date: 04/17/2019 Accession Number: [id number] / [id number] Procedure: XR - Chest 1 View X-Ray CPT Code: 75148 Final Report FULL RESULT: EXAM: CHEST RADIOGRAPHY EXAM DATE: 04/17/2019 12:22 PM. CLINICAL HISTORY: Dyspnea copd. COMPARISON: CHEST 2 VIEW PA/LAT 03/20/2014 11:15 AM. TECHNIQUE: 1 view. FINDINGS: Lungs/Pleura: Chronic prominence of interstitial markings in the lung bases. Subtle is a infiltrate in left upper lung zone. No consolidation, effusion, or pneumothorax. Mediastinum: Within exam limitations, the cardiomediastinal contour is normal. Upper lobe vessels not distended. Other: None. IMPRESSION: Left upper lobe infiltrate. RADIA
[2019-04-17 13:06] LABS: BASOPHILS % (AUTO) 0.4 %; HGB - HEMOGLOBIN 16.3 g/dL (14.0-18.0); LYMPHOCYTES # (AUTO) 0.5 10^3/uL (1.5-3.5); LYMPHOCYTES % (AUTO) 5.6 %; MEAN CORPUSCULAR HEMOGLOBIN 34.2 pg (27.0-31.0); MEAN CORPUSCULAR HGB CONC 34.5 g/dL (32.0-36.0); MEAN CORPUSCULAR VOLUME 99.4 fL (80.0-94.0); MEAN PLATELET VOLUME 10.5 fL (7.4-11.4); MONOCYTES # (AUTO) 0.5 10^3/uL (0.0-1.0); MONOCYTES % (AUTO) 5.5 %; NEUTROPHILS # (AUTO) 8.2 10^3/uL (1.5-6.6); NEUTROPHILS % (AUTO) 87.6 %; PLT - PLATELET COUNT 194 10^3/uL (130-450); RED BLOOD COUNT 4.76 10^6/uL (4.70-6.10); RED CELL DISTRIBUTION WIDTH 12.8 % (12.0-15.0); WHITE BLOOD COUNT 9.3 x10^3/uL (4.8-10.8)
[2019-04-17] MEDS ORDERED: AZITHROMYCIN INJ 500 MG in SODIUM CHLORIDE 0.9% 250 ML IV STA (13:14)
[2019-04-17 13:18] LABS: ALBUMIN 4.5 g/dL (3.2-5.5); ALBUMIN/GLOBULIN RATIO 1.3 (1.0-2.2); CALCIUM 9.6 mg/dL (8.5-10.3); CREATININE 1.1 mg/dL (0.6-1.2); TOTAL PROTEIN 8.1 g/dL (6.7-8.2)
[2019-04-17 13:20] LABS: VBG BASE EXCESS 0.7 mmol/L (-2 - +2); VBG PCO2 33.1 mmHg (41-51); VBG PH 7.471 (7.31-7.41); VBG PO2 65.5 mmHg (25-47); VBG TOTAL CO2 24.6 mmol/L (24-29)
[2019-04-17] MEDS ORDERED: SODIUM CHLORIDE 0.9% 1,000 ML IV ONE (13:37)
[2019-04-17] MEDS ORDERED: SODIUM CHLORIDE FLUSH 0.9% 10 ML SYRINGE IVP PRN (13:38)
[2019-04-17] MEDS ORDERED: ONDANSETRON 4 MG/2 ML VIAL IVP PRN (13:38)
[2019-04-17] MEDS ORDERED: ONDANSETRON ODT 4 MG TABLET TL PRN (13:38)
[2019-04-17] MEDS ORDERED: oxyCODONE 5 MG TABLET PO PRN (13:38)
[2019-04-17] MEDS ORDERED: ACETAMINOPHEN 325 MG TABLET PO PRN (13:38)
--- NOTE | 2019-04-17 14:03 | HISTORY & PHYSICAL EXAMINATION ---
Chief Complaint - Chief Complaint Chief Complaint: cough and sob History of Present Illness - Admitted From Admitted From:: Home/ER - History Obtained From [facility]ed[facility] History obtained from: Dr. Luciano and patient Exam Limitations: none - History of Present Illness HPI Comment/Other: [facility] He is seen and examined separately with separate dictation. This patient has known COPD and is followed by Sonali Galvez at [facility] pulmonology in [place]. He usually has about 2 exacerbations every 6 months. He is not on home O2. He had complications of aspiration pneumonia in 2018 resulting in lung abscess. This continued with treatment into 2019 with 2 bronchoscopies and bronchoalveolar lavage. He is negative for TB. He was recently treated for a COPD exacerbation with a steroid taper and was left with maintenance therapy at prednisone 10 mg a day. In spite of this he had increasing cough, shortness of breath, and more phlegm over the last 6 days. He is tired, has no appetite. Fever last night was to 100.2. There is no hemoptysis. No orthopnea. He was evaluated by Dr. Cantrell. He had mild respiratory distress but was able to speak in full sentences. But he could not complete paragraphs. He had diminished lung his temperature in the ER was 37.1. Pulse was 125. Respiratory rate 36. Blood pressure 125/78 and he was 70% on room air requiring 3 L to bring him up to 95%. His chest x-ray shows a left upper lobe infiltrate. His white cell count is 9.3. He is now being brought into the hospital for treatment of pneumonia and COPD exacerbation. Sounds diffusely. History - Past Medical History Cardiovascular: reports: Hypertension, High cholesterol, Other (chronic edema of legs. Echocardiogram October 2015 has an ejection fraction of 65%. Mildly dilated right ventricle. RVSP 35 mmHg.) Respiratory: reports: COPD (sees Sonali Suh MD at [facility] Pulmonology. PFTs January 2019: FVC 3.97 (101%), FEV1 1.89 L (67%), FEV1/FVC is 47 (65%). 10% improvement with bronchodilator therapy of FEV1. SVC 3.97 (94%). DLCO 11.66 which is 39% of predicted. Mild to moderate obstructive lung disease with limited evidence of benefit of bronchodilator therapy. Significant disease of the capillary alveolar level.), Emphysema (CT pulmonary angiogram done December [address] and negative[address] Severe on CT scans in the past. Also has chronic left upper lung nodule that is been followed on several CTs. Stable size.), Pneumonia (aspiration resulted in lung abcess 11/2017: Enterobacter, 12/2017 Strep parasan guinis. Bronchoscopy 11/2017 and 12/2017 w BAL. On prolonged abxs from 02/2018 to 09/2018), Other Endocrine/Autoimmune: reports: None GI: reports: GERD (Aspiration pneumonia January 2018 resulted in barium swallow. Decreased delayed esophageal peristalsis. Intermittent tertiary contractions. Occasional retropulsion of contrast material but no elicited GERD. Small moderate hiatal hernia.), Ulcers (in the past), Other (diverticulosis) : reports: Benign prostate hypertrophy (probable with nocturia, slow stream, erectile dysfunction), Nocturia Psych: reports: Other (insomnia) Musculoskeletal: reports: Osteoarthritis (hips), Gout, Other (ganglion left hand) Derm: reports: None MRSA Hx?: No - Past Surgical History General: reports: Appendectomy (03/2016), Colonoscopy (2000) HEENT: reports: Tonsil/Adenoidectomy - Family & Social History Family History Comment/Other: Mom of lung cancer in her 60's. Never knew his dad. Brother of multiple myeloma in his early 40s. Sister is alive and well in [place]. 1 daughter healthy as far as he knows. She lives in [place]. Keep in touch but hasn't seen her since 2010. Living arrangement: At home Living Situation: Alone Social History Notes: 3 drinks/day. Former smoker of 1-2 ppd for 45 years. Quite 1999. 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 Travelled [employer] [place] 20 years ([place], [place], [employer], [place], [place] He has been 4 times. All of them . Lives in his own home. Kind of a loner. Likes being at home with his little dog.Denies recreational substance abuse - Substance History Use: Uses substance without health or social issues: Alcohol Abuse: Recurrent use of substance despite neg consequences: NONE Dependence: Experiences withdrawal or developed tolerances: NONE - POLST Patient has POLST: No POLST Status: Full Code Meds/Allgy - Home Medications Home Medications: Ambulatory Orders Medication Instructions Recorded Confirmed Aspirin [Aspir 81] 81 mg PO DAILY 08/18/12 04/17/19 Allopurinol [Zyloprim] 300 mg PO DAILY 02/13/16 04/17/19 Cholecalciferol (Vitamin D3) 2,000 unit PO DAILY 02/13/16 04/17/19 [Vitamin D3] Cyanocobalamin (Vitamin B-12) 1,000 mcg PO DAILY 02/13/16 04/17/19 [Vitamin B-12] Felodipine [Felodipine ER] 10 mg PO DAILY 02/13/16 04/17/19 Ferrous Gluconate [Iron] 65 mg PO DAILYWM 02/13/16 04/17/19 [place]-3/Dha/Epa/Fish Oil [Fish Oil 1 cap PO DAILY 02/13/16 04/17/19 1,000 mg Softgel] Simvastatin [Zocor] 10 mg PO QPM 02/13/16 04/17/19 Albuterol 2.5 mg INH Q4H PRN 04/17/19 04/17/19 Albuterol Sulfate [Proair Hfa 2 puffs INH Q4H PRN 04/17/19 04/17/19 Inhaler] Diclofenac Sodium 2 g TOP BID PRN 04/17/19 04/17/19 Duloxetine HCl 60 mg PO DAILY 04/17/19 04/17/19 Fluticasone/Salmeterol [Advair 1 puffs INH BID 04/17/19 04/17/19 250-50 Diskus] Loratadine [Claritin] 10 mg PO DAILY 04/17/19 04/17/19 Montelukast [Singulair] 10 mg PO QPM 04/17/19 04/17/19 Omeprazole 20 mg PO BID 04/17/19 04/17/19 Sildenafil Citrate [Viagra] 100 mg PO DAILY PRN 04/17/19 04/17/19 Tiotropium [place] [Spiriva 2 puffs INH DAILY 04/17/19 04/17/19 Respimat] polyethylene glycoL 3350 [Miralax] 17 gm PO DAILY PRN 04/17/19 04/17/19 predniSONE [Deltasone] 10 mg PO DAILYWM 04/17/19 04/17/19 traZODone [Desyrel] 50 mg PO HS PRN 04/17/19 04/17/19 - Allergies Allergies/Adverse Reactions: Allergies Allergy/AdvReac Type Severity Reaction Status Date / Time No Known Drug Allergies Allergy Verified 04/17/19 12:03 Review of Systems - Constitutional Constitutional: reports: Fatigue, Fever, Malaise, Poor appetite (for the last we ek.) - Eyes Eyes: reports: Corrective lenses. denies: Amaurosis, Vision loss, Dipolpia - Ears, Nose & Throat Ears, Nose & Throat: reports: Hearing loss, Hearing aids, Postnasal drainage. denies: Nasal discharge, Sore throat, Hoarseness - Cardiovascular Cariovascular: reports: Edema (chronic for him), Exertional dyspnea. denies: Irregular heart rate, Palpitations, Chest pain - Respiratory Respiratory: reports: Cough, Sputum production, Wheezing, SOB at rest, SOB with exertion. denies: Hemoptysis - Gastrointestinal Gastrointestinal: reports: Poor appetite. denies: Abdominal pain, Abdominal distention, Diarrhea, Vomiting - Genitourinary Genitourinary: reports: Nocturia. denies: Dysuria, Frequency, Urgency, Hematuria - Musculoskeletal Musculoskeletal: reports: Stiffness, Joint pain (from OA of all his joints) - Integumentary Integumentary: reports: Lesions. denies: Rash, Pruritis - Neurological Neurological: reports: Headache. denies: Focal weakness, Numbness, Memory problems - Psychiatric Psychiatric: denies: Depression, Anxiety, Suicidal - Endocrine Endocrine: denies: Polyuria, Polydypsia, Polyphagia - Hematologic/Lymphatic Hematologic/Lymphatic: denies: Anemia, Bruising, Petechiae Prior Level of Functionality: Lives in his own home. 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 This last week is been very difficult for him because of shortness of breath weakness and fatigue. As long as he takes the time and takes it slow, he can get all of his activities of daily living done.His sister is the person that speaks for him if he were to become unconscious and decisions need to be made for him. Exam - Vital Signs Reviewed Vital Signs: Yes Vital Signs: Vital Signs x48h Temp Pulse Resp BP Pulse Ox 04/17/19 13:30 93 20 128/78 93 04/17/19 13:06 94 24 127/80 93 02/07/20 12:36 96 24 126/68 94 04/17/19 12:20 96 18 04/17/19 12:13 107 H 30 H 129/77 95 04/17/19 12:04 37.1 C 125 H 36 H 125/78 78 L - Physical Exam General Appearance: positive: No acute distress, Alert, Other (5 foot 7 inch male who looks stated age and is 91 kg. Says that from the emergency room to [facility] he feels much better with less cough and shortness of breath. Since a ntibiotics, nebulizers, 78% O2 sat much better on 3 to 4 L nasal cannula resulting in 95% saturation.) Eyes Bilateral: positive: PERRL, EOMI ENT: positive: Pharynx nml Neck: positive: No JVD. negative: Stiff neck, Carotid bruit Respiratory: positive: Chest non-tender, Other (Prolonged end exhalation but no outright wheezing). negative: Wheezes, Rales, Rhonchi Cardiovascular: positive: Regular rate & rhythm. negative: Systolic murmur, Gallop/S4 Peripheral Pulses: positive: 1+ Abdomen: positive: Non-tender, No organomegaly, Nml bowel sounds, No distention Skin: positive: Warm, Dry, Pallor Extremities: positive: Full ROM, Pedal edema Neurologic/Psychiatric: positive: Oriented x3, CN's nml (2-12) (Wearing hearing aids and glasses), Motor nml Conclusion/Plan - Problem List (1) COPD with exacerbation Conclusion/Plan: On maintenance steroids. Gets about 2-4 exacerbations a year. Plan: Current etiology of exacerbation appears to be pneumonia Long-acting bronchodilator with Perforomist Long-acting inhaled steroid IV steroids for the next 2 days 4 times daily DuoNeb Albuterol PRN every 2 hours (2) Left upper lobe pneumonia Conclusion/Plan: This is a gentleman who has a history of aspiration pneumonia in the past. Enterobacter and strep para sanguinous in previous cultures. AFB negative. He also has a history of left upper lung nodule. Once he is feeling better from a respiratory perspective, I will go ahead and repeat a CT of the chest. Plan: Community-acquired pneumonia in a patient who has known COPD. We are usually treating Haemophilus, Moraxella, strep pneumonia, Legionella, but in this patient we have known previous history of Enterobacter as above. Use Rocephin, azithromycin. + Sputum cultures + Adjust on the basis of blood cultures if they become positive Qualifiers: Pneumonia type: due to unspecified organism Qualified Code(s): J18.9 - Pneumonia, unspecified organism (3) Hypertension Conclusion/Plan: Hypertension resume his felodipine and will continue to monitor. Qualifiers: Hypertension type: essential hypertension Qualified Code(s): I10 - Essential (primary) hypertension (4) Lower extremity edema Conclusion/Plan: He is usually on Lasix for this. I would like to hold off on giving him Lasix until he has been a little hydrated and treated for his pneumonia. (5) Gastroesophageal reflux disease with hiatal hernia Conclusion/Plan: and presbyesophagus. This condition is already resulted in aspiration pneumonia and illness with abscess last year. We will have speech therapy see him and make sure that he is following good swallowing techniques. Also keep him on proton pump inhibitor. - Lab Results Lab results reviewed: Yes Fish Bones: 04/17/19 12:12 04/17/19 12:12 Core Measures - Anticipated LOS I expect patient to be DC'd or transferred within 96 hours.: Yes - DVT/VTE - Prophylaxis VTE/DVT Device ordered at admit?: Yes
--- NOTE | 2019-04-17 14:17 | PHARMACY PROGRESS NOTE ---
- Best Possible Medication History Admit Date and Time: Patient still in ED Processed by: Pharmacy Medication History completed: Yes Patient Interview: Completed Secondary Source(s): Physician records, Pharmacy records, Insurance records As the person ultimately responsible for medication therapy, providers are able to order a medication from an existing home medication list in [facility] via the "Reconcile Routine" prior to Confirmation of that medication by field support engineer. Such practice is discouraged except when the physician, in their clinical judgment, deems that a medical need exists for a medication without regard to previous use.
--- NOTE | 2019-04-17 14:31 | HISTORY & PHYSICAL EXAMINATION ---
Chief Complaint - Chief Complaint Chief Complaint: Dyspnea <Stephanie Medellin - Last Filed: 04/17/19 16:10> History of Present Illness - Admitted From Admitted From:: Emergency room - History Obtained From Records Reviewed: Yes History obtained from: Patient and medical record <Stephanie Medellin - Last Filed: 04/17/19 16:10> - History of Present Illness HPI Comment/Other: Mr. Rodriges is a 73 yo gentleman with PMH of COPD, gout, HTN, alcohol use, venous stasis who presents with dyspnea that has been worsening since Saturday. Patient felt like he was getting a cold and last Saturday night the patient noticed that his dyspnea seemed to be getting worse. He has had to increase his home oxygen from 3L to 5L O2 to maintain oxygen sats in the low nineties. He says that walking into the kitchen will cause his sats to go down into the high 70s. He has had pneumonia in the past that has required two bronchoscopies and antibiotics for 13 months. He is a former smoker who quit 20 years ago, but smoked 67.5 pack years. He has a productive cough, but doesn't feel like he is able to cough up as much as he should. (Stephanie Medellin) History - Past Medical History Cardiovascular: reports: Hypertension, High cholesterol, Other (chronic edema of legs) Respiratory: reports: COPD (sees Sonali Suh MD at [facility] Pulmonology. PFTs January 2019: FVC 3.97 (101%), FEV1 1.89 L (67%), FEV1/FVC is 47 (65%). 10% improvement with bronchodilator therapy of FEV1. SVC 3.97 (94%). DLCO 11.66 which is 39% of predicted. Mild to moderate obstructive lung disease with limited evidence of benefit of bronchodilator therapy. Significant disease of the capillary alveolar level.), Emphysema (CT pulmonary angiogram done December 2018 and negative. Severe on CT scans in the past. Also has chronic left upper lung nodule that is been followed on several CTs. Stable size.), Pneumonia, Other Neuro: reports: None Endocrine/Autoimmune: reports: None GI: reports: GERD (Aspiration pneumonia January 2018 resulted in barium swal low. Decreased delayed esophageal peristalsis. Intermittent tertiary contractions. Occasional retropulsion of contrast material but no elicited GERD. Small moderate hiatal hernia.), Ulcers (in the past), Other (diverticulosis) : reports: Benign prostate hypertrophy (probable with nocturia, slow stream, erectile dysfunction), Nocturia HEENT: reports: Chronic vision loss (wears glasses), Chronic hearing loss (wears hearing aids) Psych: reports: None, Other (insomnia) Musculoskeletal: reports: Osteoarthritis (hips), Gout, Other (ganglion left hand) Derm: reports: None MRSA Hx?: No - Past Surgical History General: reports: Appendectomy (03/2016), Colonoscopy HEENT: reports: Tonsil/Adenoidectomy - Family & Social History Living arrangement: At home Living Situation: Alone Social History Notes: 3 drinks/day. former smoker. - Substance History Use: Uses substance without health or social issues: Alcohol (3 drinks per day) Tobacco Details: Cigarettes (Quit 20 years ago. 67.5 pack years.) - POLST Patient has POLST: No <Stephanie Medellin - Last Filed: 04/17/19 16:10> Meds/Allgy <Stephanie Medellin - Last Filed: 04/17/19 16:10> <Yarely Bullock - Last Filed: 04/17/19 17:25> - Home Medications Home Medications: Ambulatory Orders Medication Instructions Recorded Confirmed Aspirin [Aspir 81] 81 mg PO DAILY 08/18/12 04/17/19 Allopurinol [Zyloprim] 300 mg PO DAILY 02/13/16 04/17/19 Cholecalciferol (Vitamin D3) 2,000 unit PO DAILY 02/13/16 04/17/19 [Vitamin D3] Cyanocobalamin (Vitamin B-12) 1,000 mcg PO DAILY 02/13/16 04/17/19 [Vitamin B-12] Felodipine [Felodipine ER] 10 mg PO DAILY 02/13/16 04/17/19 Ferrous Gluconate [Iron] 65 mg PO DAILYWM 02/13/16 04/17/19 [place]-3/Dha/Epa/Fish Oil [Fish Oil 1 cap PO DAILY 02/13/16 04/17/19 1,000 mg Softgel] Simvastatin [Zocor] 10 mg PO QPM 02/13/16 04/17/19 Albuterol 2.5 mg INH Q4H PRN 04/17/19 04/17/19 Albuterol Sulfate [Proair Hfa 2 puffs INH Q4H PRN 04/17/19 04/17/19 Inhaler] Diclofenac Sodium 2 g TOP BID PRN 04/17/19 04/17/19 Duloxetine HCl 60 mg PO DAILY 04/17/19 04/17/19 Fluticasone/Salmeterol [Advair 1 puffs INH BID 04/17/19 04/17/19 250-50 Diskus] Loratadine [Claritin] 10 mg PO DAILY 04/17/19 04/17/19 Montelukast [Singulair] 10 mg PO QPM 04/17/19 04/17/19 Omeprazole 20 mg PO BID 04/17/19 04/17/19 Sildenafil Citrate [Viagra] 100 mg PO DAILY PRN 04/17/19 04/17/19 Tiotropium [place] [Spiriva 2 puffs INH DAILY 04/17/19 04/17/19 Respimat] polyethylene glycoL 3350 [Miralax] 17 gm PO DAILY PRN 04/17/19 04/17/19 predniSONE [Deltasone] 10 mg PO DAILYWM 04/17/19 04/17/19 traZODone [Desyrel] 50 mg PO HS PRN 04/17/19 04/17/19 - Allergies Allergies/Adverse Reactions: Allergies Allergy/AdvReac Type Severity Reaction Status Date / Time No Known Drug Allergies Allergy Verified 04/17/19 12:03 Review of Systems - Constitutional Constitutional: reports: Fever, Poor appetite - Eyes Eyes: reports: Corrective lenses - Ears, Nose & Throat Ears, Nose & Throat: reports: Hearing loss, Hearing aids - Cardiovascular Cariovascular: reports: Edema (Chronic, lower extremities). denies: Palpitations, Chest pain - Respiratory Respiratory: reports: Cough, Sputum production, Wheezing, SOB at rest, SOB with exertion. denies: Hemoptysis - Gastrointestinal Gastrointestinal: denies: Abdominal pain, Diarrhea, Nausea, Vomiting - Genitourinary Genitourinary: denies: Dysuria, Frequency, Urgency, Incontinence - Musculoskeletal Musculoskeletal: reports: Stiffness, Joint pain (Arthritis in left knee, bilateral hips, bilateral shoulders, neck.) - Integumentary Integumentary: denies: Rash, Pruritis - Neurological Neurological: reports: Headache. denies: Numbness - Psychiatric Psychiatric: denies: Depression, Anxiety - Hematologic/Lymphatic Hematologic/Lymphatic: denies: Anemia <Stephanie Medellin - Last Filed: 04/17/19 16:10> <Stephanie Medellin - Last Filed: 04/17/19 16:10> Prior Level of Functionality: Independent. Patient lives alone and is able to care for himself, cook and dress himself. (Stephanie Medellin) Exam - Vital Signs Reviewed Vital Signs: Yes - Physical Exam General Appearance: positive: No acute distress, Alert Eyes Bilateral: positive: Normal inspection, PERRL, EOMI ENT: positive: ENT inspection nml Neck: positive: Nml inspection, Trachea midline Respiratory: positive: Chest non-tender, No respiratory distress, Breath sounds nml Cardiovascular: positive: Regular rate & rhythm, No murmur, No gallop Peripheral Pulses: positive: 2+ Abdomen: positive: Non-tender, No organomegaly, Nml bowel sounds, No distention Back: positive: Nml inspection Skin: positive: Color nml, No rash, Warm, Dry Extremities: positive: Non-tender, Full ROM, No pedal edema Neurologic/Psychiatric: positive: Oriented x3 <Stephanie Medellin - Last Filed: 04/17/19 16:10> - Vital Signs Vital Signs: Vital Signs x48h Temp Pulse Resp BP Pulse Ox 04/17/19 14:18 36.7 C 88 16 141/68 H 94 04/17/19 13:30 93 20 128/78 93 04/17/19 13:06 94 24 127/80 93 04/17/19 12:36 96 24 126/68 94 04/17/19 12:20 96 18 04/17/19 12:13 107 H 30 H 129/77 95 04/17/19 12:04 37.1 C 125 H 36 H 125/78 78 L Conclusion/Plan - Problem List (1) COPD with exacerbation Conclusion/Plan: Patient has 67.5 pack year history. He has not smoked in 20 years. He sees Sonali Suh MD at [facility] Pulmonology. PFTs January 2019: FVC 3.97 (101%), FEV1 1.89 L (67%), FEV1/FVC is 47 (65%). 10% improvement with bronchodilator therapy of FEV1. SVC 3.97 (94%). DLCO 11.66 which is 39% of predicted. Mild to moderate obstructive lung disease with limited evidence of benefit of bronchodi lator therapy. Significant disease of the capillary alveolar level.), Emphysema (CT pulmonary angiogram done December 2018 and negative. Severe on CT scans in the past. Also has chronic left upper lung nodule that is been followed on several CTs. Stable size.), Pneumonia (aspiration resulted in lung abcess 11/2017: Enterobacter, 12/2017 Strep parasanguinis. Bronchoscopy 11/2017 and 12/2017 w BAL. On prolonged abxs from 02/2018 to 09/2018). Chest x-ray from 04/17/2019 shows prominence of intersitital markings and subtle infiltrate to left upper lobe. Patient reports having a 100.2 temperature yesterday. VBG pH 7.471 and pCO2 33.1, WBC 9.3. 1. Start IV antibiotics, rocephin and azithromycin. 2. Continue home meds: duonebs, fluticasone-salmeterol, albuterol prn. 3. Hold tiotropium. (2) Left upper lobe pneumonia Conclusion/Plan: Patient has had pneumonia in the past (aspiration resulted in lung abcess 11/2017: Enterobacter, 12/2017 Strep parasanguinis. Bronchoscopy 11/2017 and 12/2017 with BAL. On prolonged abxs from 02/2018 to 09/2018). Chest x-ray from 04/17/2019 shows prominence of intersitital markings and subtle infiltrate to left upper lobe. Patient reports having a 100.2 temperature yesterday. VBG pH 7.471 and pCO2 33.1, WBC 9.3. 1. Start IV antibiotics, rocephin and azithromycin. 2. Send sputum culture to micro lab. 3. Monitor daily CBC. 4. O2 per nasal cannula to keep O2 sats above 92%. Qualifiers: Pneumonia type: due to unspecified organism Qualified Code(s): J18.9 - Pneumonia, unspecified organism (3) Lower extremity edema Conclusion/Plan: Documentation of a history of bilateral lower extremity edema. Patient takes lasix daily. 1. Hold lasix for now. (4) Hypertension Conclusion/Plan: Patient has a history of hypertension. He takes felodipine daily. 1. Continue felodipine. Qualifiers: Hypertension type: essential hypertension Qualified Code(s): I10 - Essential (primary) hypertension - Lab Results Fish Bones: 04/17/19 12:12 04/17/19 12:12 - Diagnostic Imaging Results Diagnostic Imaging Results: positive: Final report reviewed, See rad report - EKG Results EKG Interpreted Independently: Yes EKG Comparison: Unchanged from prior EKG <Stephanie Medellin - Last Filed: 04/17/19 16:10> - Problem List (2) Left upper lobe pneumonia Qualifiers: Pneumonia type: due to unspecified organism Qualified Code(s): J18.9 - Pneumonia, unspecified organism (3) Hypertension Qualifiers: Hypertension type: essential hypertension Qualified Code(s): I10 - Essential (primary) hypertension - Lab Results Fish Bones: 04/17/19 12:12 04/17/19 12:12 <Yarely Bullock - Last Filed: 04/17/19 17:25> - EKG Results EKG Findings: Normal sinus rhythm. PAC. Right bundle branch block. (Stephanie Medellin) Core Measures - Anticipated LOS I expect patient to be DC'd or transferred within 96 hours.: Yes - DVT/VTE - Prophylaxis VTE/DVT Device ordered at admit?: Yes <Yarely Bullock - Last Filed: 04/17/19 17:25>
[2019-04-17] MEDS: ALBUTEROL NEB 2.5 MG/3 ML INH PRN (16:00)
[2019-04-17] MEDS: PANTOPRAZOLE 40 MG TABLET PO SCH (16:50)
[2019-04-17] MEDS ORDERED: IPRATROPIUM/ALBUTEROL 3 ML NEB INH SCH (19:00)
--- NOTE | 2019-04-17 19:01 | ADVANCE CARE PLANNING NOTE ---
Advance Care Planning - Planning Encounter Date: 04/17/19 Time: 18:00 Purpose: establish code status Parties in Attendance: patient and hospitalist Decisional Capacity of the Patient: alert, oriented, lives independently - Diagnosis for Encounter (1) COPD with exacerbation Summary: admission for pneumonia and COPD. Had lung abcess 2019. Not on home O2. - Encounter Subjective/Patient's Story: Smoker for much of his life and finally quit smoking in 1999. He considers himself relatively healthy and active until about 2012 when he noticed that he was getting more short of breath and more easily fatigued with cough and phlegm. By 2016 had formal diagnosis of COPD. He has been 4 times. Has 1 daughter. He does stay in contact with her but has not physically seen her since 2010. She lives in [place]. His sister, Trinidad, lives in [place], [place]. Her name is Trinidad Ayon and her phone number is [phone]. He also has a nephew named Andrey Thomas. His phone number is [phone] and he lives in [place]. He regards himself is independent. Because of his COPD he has less and less exertional inclination. Is pretty much a homebody and likes staying home with his little dog, who is now blind. But he likes his neighbors. Does go out occasionally. The last time he went out to a green party was in February for a birthday green party. He still takes care of himself, his house. Sometimes is getting a little bit more difficult. He has never really thought about resuscitative status, or plan for the future when his COPD gets worse. In late 2017 he developed pneumonia, then went on to have a lung abscess left upper lung and was diagnosed as aspiration pneumonia. Was under the care of Dr. Amairani linares at [facility]. He shares with me that she is just left and now he is taking care of by Dr. Valerio on 8. He has had bronchoscopies. Lavage. Pulmonary function studies documenting moderate to severe COPD. He was actually doing well for the rest of 2019 until now. Started getting sick about 3 to 4 weeks ago. Put on a steroid burst. Tapered off to 10 mg a day. But in the last week he has been exhausted, has a little bit of a fever, increased phlegm and cough. Came to the emergency room and his O2 sat was 78% on room air. He has a left upper lobe pneumonia. In having a discussion about his plans for the future if he gets disabled, he does not have any right now. He had not thought about what it would be like to be so sick that he cannot take care of himself anymore. Right now he has tentative plans to just stay in his home, and most likely hire people to come to his house to help take care of him. Although he has his neighbors, Enzo and Jil Irizarry, he does not think he can really rely on them. Their phone number is [phone]. So if he were to ever get sick enough that he needs somebody to speak for him, either call his sister or Andrey his nephew would be the people we would call. After discussing scenarios of different illnesses that would result in hospitalization, ICU stays, etc., he is decided that he does still want aggressive treatment. He would want to be hospitalized, be given antibiotics, surgeries if necessary. If need to put him in the ICU with pressors that would be fine. BiPAP would be fine. He even would want short-term intubation if we have a reasonable expectation that he will survive the extubation to return to his baseline life as he lives it now. But if he is significantly disabled, brain damaged, he does not want intubation. He does not want CPR/ chest compressions if it were to come to that. So he wants intubation but not CPR. Objective/Medical Story: This patient has known COPD and is followed by Sonali Galvez and Dr. Polk at [facility] pulmonology in [place]. He usually has about 2 exacerbations every 6 months. He is not on home O2. He had complications of aspiration pneumonia in 2018 resulting in lung abscess. This continued with treatment into 2019 with 2 bronchoscopies and bronchoalveolar lavage. He is negative for TB. He was recently treated for a COPD exacerbation with a steroid taper and was left with maintenance therapy at prednisone 10 mg a day. In spite of this he had increasing cough, shortness of breath, and more phlegm over the last 6 days. He is tired, has no appetite. Fever last night was to 100.2. There is no hemoptysis. No orthopnea. He was evaluated by Dr. Luciano. He had mild respiratory distress but was able to speak in full sentences. But he could not complete paragraphs. He had diminished lung his temperature in the ER was 37.1. Pulse was 125. Respiratory rate 36. Blood pressure 125/78 and he was 70% on room air requiring 3 L to bring him up to 95%. His chest x-ray shows a left upper lobe infiltrate. His white cell count is 9.3. He is now being brought into the hospital for treatment of pneumonia and COPD exacerbation. History - Past Medical History Cardiovascular: reports: Hypertension, High cholesterol, Other (chronic edema of legs. Echocardiogram October 2015 has an ejection fraction of 65%. Mildly dilated right ventricle. RVSP 35 mmHg.) Respiratory: reports: COPD (sees Sonali Suh MD at [facility] Pulmonology. PFTs January 2019: FVC 3.97 (101%), FEV1 1.89 L (67%), FEV1/FVC is 47 (65%). 10% improvement with bronchodilator therapy of FEV1. SVC 3.97 (94%). DLCO 11.66 which is 39% of predicted. Mild to moderate obstructive lung disease with limited evidence of benefit of bronchodilator therapy. Significant disease of the capillary alveolar level.), Emphysema (CT pulmonary angiogram done December 2018 and negative. Severe on CT scans in the past. Also has chronic left upper lung nodule that is been followed on several CTs. Stable size.), Pneumonia (aspiration resulted in lung abcess 11/2017: Enterobacter, 12/2017 Strep parasanguinis. Bronchoscopy 11/2017 and 12/2017 w BAL. On prolonged abxs from 02/2018 to 09/2018) Endocrine/Autoimmune: reports: None GI: reports: GERD (Aspiration pneumonia January 2018 resulted in barium swallow. Decreased delayed esophageal peristalsis. Intermittent tertiary contractions. Occasional retropulsion of contrast material but no elicited GERD. Small moderate hiatal hernia.), Ulcers (in the past), Other (diverticulosis) : reports: Benign prostate hypertrophy (probable with nocturia, slow stream, erectile dysfunction), Nocturia Psych: reports: Other (insomnia) Musculoskeletal: reports: Osteoarthritis (hips), Gout, Other (ganglion left hand) Derm: reports: None MRSA Hx?: No - Past Surgical History General: reports: Appendectomy (03/2016), Colonoscopy (2000) HEENT: reports: Tonsil/Adenoidectomy Goals of Care: None at this time. Other than remaining as independent as possible and living in his own home that he owns. Plan: 1. Get him through this acute episode of care. And have him follow-up with his outboard technician in [facility]. 2. DO NOT RESUSCITATE status with CPR, but do intubate 3. Refer for cardiopulmonary rehab 4. Start some preliminary conversations with his sister and his nephew about what he wants. Think about his life in terms of quality of life and what he regards is important when he become so ill he can no longer take care of himself. Have those thoughts shared with his family so that when the time comes they can make decisions for him when he is no longer able to speak for himself. Code Status: Do Not Attempt Resuscitation Time spent on advance care plannin
[2019-04-17] MEDS: FORMOTEROL FUMARATE NEB 20 MCG/2 ML INH SCH (20:06)
[2019-04-17] MEDS: BUDESONIDE 0.5 MG/2 ML NEB INH SCH (20:06)
[2019-04-17] MEDS: IPRATROPIUM/ALBUTEROL 3 ML NEB INH SCH (20:11)
[2019-04-17] MEDS ORDERED: IPRATROPIUM/ALBUTEROL 3 ML NEB INH ONE (20:13)
[2019-04-17] MEDS: SODIUM CHLORIDE FLUSH 0.9% 10 ML SYRINGE IVP SCH (21:18)
[2019-04-18] MEDS: SODIUM CHLORIDE FLUSH 0.9% 10 ML SYRINGE IVP SCH ×3 (00:53→16:35)
[2019-04-18] MEDS: ALBUTEROL NEB 2.5 MG/3 ML INH PRN (05:31)
[2019-04-18] MEDS: BUDESONIDE 0.5 MG/2 ML NEB INH SCH ×2 (05:32→21:07)
[2019-04-18] MEDS: FORMOTEROL FUMARATE NEB 20 MCG/2 ML INH SCH ×2 (05:32→21:07)
[2019-04-18 06:20] LABS: BASOPHILS % (AUTO) 0.3 %; HGB - HEMOGLOBIN 14.7 g/dL (14.0-18.0); LYMPHOCYTES % (AUTO) 13.6 %; MEAN CORPUSCULAR HGB CONC 33.9 g/dL (32.0-36.0); MEAN CORPUSCULAR VOLUME 100.2 fL (80.0-94.0); MEAN PLATELET VOLUME 10.4 fL (7.4-11.4); MONOCYTES # (AUTO) 0.7 10^3/uL (0.0-1.0); MONOCYTES % (AUTO) 9.3 %; NEUTROPHILS # (AUTO) 5.7 10^3/uL (1.5-6.6); NEUTROPHILS % (AUTO) 75.9 %; PLT - PLATELET COUNT 183 10^3/uL (130-450); RED BLOOD COUNT 4.32 10^6/uL (4.70-6.10); RED CELL DISTRIBUTION WIDTH 12.5 % (12.0-15.0); WHITE BLOOD COUNT 7.6 x10^3/uL (4.8-10.8)
[2019-04-18 06:32] LABS: CREATININE 0.9 mg/dL (0.6-1.2)
[2019-04-18] MEDS: PANTOPRAZOLE 40 MG TABLET PO SCH (07:28)
[2019-04-18] MEDS: FELODIPINE ER 2.5 MG TABLET PO SCH (08:36)
[2019-04-18] MEDS: cefTRIAXone 1 GM in SODIUM CHLORIDE 0.9% MINIBAG 100 ML IV SCH (08:37)
[2019-04-18] MEDS: IPRATROPIUM/ALBUTEROL 3 ML NEB INH SCH ×3 (09:13→21:07)
--- NOTE | 2019-04-18 09:26 | PROVIDER PROGRESS NOTE ---
<Stephanie Medellin - Last Filed: 04/18/19 11:08> Subjective - Prog Note Date Prog Note Date: 04/18/19 Prog Note Time: 09:24 - Subjective Pt reports feeling: Improved Subjective: Patient says that he feels slightly better than he did when he came to the emergency room yesterday. He still doesn't feel well. He didn't get much sleep last night which doesn't help. Current Medications - Current Medications Current Medications: Active Medications Acetaminophen (Tylenol) 650 mg PO Q4HR PRN PRN Reason: Pain 1 to 4 Albuterol () 2.5 mg INH Q2HR PRN PRN Reason: Wheezing Last Admin: 04/18/19 05:31 Dose: 2.5 mg Albuterol/Ipratropium (Duoneb) 3 ml INH 0900,1500,2100 [facility] Last Admin: 04/18/19 09:13 Dose: 3 ml Budesonide (Pulmicort) 0.5 mg INH RTBID [facility] Last Admin: 04/18/19 05:32 Dose: 0.5 mg Felodipine (Plendil) 10 mg PO DAILY [facility] Last Admin: 04/18/19 08:36 Dose: 10 mg Formoterol Fumarate (Perforomist) 20 mcg INH RTBID [facility] Last Admin: 04/18/19 05:32 Dose: 20 mcg Azithromycin 500 mg/ Sodium (Chloride) 250 mls @ 250 mls/hr IV DAILY [facility] Stop: 04/19/19 09:59 Ceftriaxone Sodium 1 gm/ (Sodium Chloride) 100 mls @ 200 mls/hr IV DAILY [facility] Stop: 04/21/19 09:29 Last Admin: 04/18/19 08:37 Dose: 200 mls/hr Ondansetron HCl (Zofran Inj) 4 mg IVP Q6HR PRN PRN Reason: Nausea / Vomiting Ondansetron HCl (Zofran Odt) 4 mg TL Q6HR PRN PRN Reason: Nausea / Vomiting Oxycodone HCl (Roxicodone) 5 mg PO Q4HR PRN PRN Reason: Pain 5 to 7 Pantoprazole Sodium (Protonix) 40 mg PO QDAC [facility] Last Admin: 04/18/19 07:28 Dose: 40 mg Sodium Chloride (Normal Saline Flush 0.9%) 10 ml IVP PRN PRN PRN Reason: NEEDED PER PROVIDER ORDERS Sodium Chloride (Normal Saline Flush 0.9%) 10 ml IVP 0100,0900,1700 [facility] Last Admin: 04/18/19 00:53 Dose: 10 ml Trazodone HCl (Desyrel) 50 mg PO HS [facility] Aspirin [Aspir 81] 81 mg PO DAILY 08/18/12 Allopurinol [Zyloprim] 300 mg PO DAILY 02/13/16 Cholecalciferol (Vitamin D3) [Vitamin D3] 2,000 unit PO DAILY 02/13/16 Cyanocobalamin (Vitamin B-12) [Vitamin B-12] 1,000 mcg PO DAILY 02/13/16 Felodipine [Felodipine ER] 10 mg PO DAILY 02/13/16 Ferrous Gluconate [Iron] 65 mg PO DAILYWM 02/13/16 [place]-3/Dha/Epa/Fish Oil [Fish Oil 1,000 mg Softgel] 1 cap PO DAILY 02/13/16 Simvastatin [Zocor] 10 mg PO QPM 02/13/16 Albuterol 2.5 mg INH Q4H PRN 04/17/19 Albuterol Sulfate [Proair Hfa Inhaler] 2 puffs INH Q4H PRN 04/17/19 Diclofenac Sodium 2 g TOP BID PRN 04/17/19 Duloxetine HCl 60 mg PO DAILY 04/17/19 Fluticasone/Salmeterol [Advair 250-50 Diskus] 1 puffs INH BID 04/17/19 Loratadine [Claritin] 10 mg PO DAILY 04/17/19 Montelukast [Singulair] 10 mg PO QPM 04/17/19 Omeprazole 20 mg PO BID 04/17/19 Sildenafil Citrate [Viagra] 100 mg PO DAILY PRN 04/17/19 Tiotropium [place] [Spiriva Respimat] 2 puffs INH DAILY 04/17/19 polyethylene glycoL 3350 [Miralax] 17 gm PO DAILY PRN 04/17/19 predniSONE [Deltasone] 10 mg PO DAILYWM 04/17/19 traZODone [Desyrel] 50 mg PO HS PRN 04/17/19 Objective - Vital Signs/Intake & Output Reviewed Vital Signs: Yes Vital Signs: Vital Signs x48h Temp Pulse Pulse Resp BP Pulse Ox 04/18/19 09:14 78 20 04/18/19 08:19 36.7 C 70 20 141/73 H 97 04/18/19 05:32 85 20 Intake & Output: Intake & Output 04/15/19 04/16/19 04/17/19 04/18/19 23:59 23:59 23:59 23:59 Intake Total 860 460 Output Total 300 Balance 860 160 - Objective General Appearance: positive: No acute distress, Alert Eyes Bilateral: positive: Normal inspection, PERRL ENT: positive: ENT inspection nml, No signs of dehydration Neck: positive: Nml inspection, Thyroid nml, Trachea midline Respiratory: positive: Breath sounds nml. negative: Wheezes, Rales, Rhonchi Cardiovascular: positive: Regular rate & rhythm, No murmur, No gallop Peripheral Pulses: 2+ Radial (R), 2+ Radial (L), 2+ Posterior tibialis (R), 2+ Posterior tibialis (L) Abdomen: positive: Nml bowel sounds Back: positive: Nml inspection Skin: positive: Color nml, No rash, Warm, Dry Extremities: positive: Non-tender, Full ROM Neurologic/Psychiatric: positive: Oriented x3 - Lab Results Fish Bones: 04/18/19 06:00 04/18/19 06:00 Other Labs: Lab Results x24hrs 04/18/19 04/18/19 04/17/19 Range/Units 06:00 06:00 13:15 WBC 7.6 (4.8-10.8) x10^3/uL RBC 4.32 L (4.70-6.10) 10^6/uL Hgb 14.7 (14.0-18.0) g/dL Hct 43.3 (42.0-52.0) % MCV 100.2 H (80.0-94.0) fL MCH 34.0 H (27.0-31.0) pg MCHC 33.9 (32.0-36.0) g/dL RDW 12.5 (12.0-15.0) % Plt Count 183 (130-450) 10^3/uL MPV 10.4 (7.4-11.4) fL Neut # (Auto) 5.7 (1.5-6.6) 10^3/uL Lymph # (Auto) 1.0 L (1.5-3.5) 10^3/uL [place] # (Auto) 0.7 (0.0-1.0) 10^3/uL Eos # (Auto) 0.0 (0.0-0.7) 10^3/uL Baso # (Auto) 0.0 (0.0-0.1) 10^3/uL Absolute Nucleated RBC 0.00 x10^3/uL Nucleated RBC % 0.0 /100WBC VBG pH 7.471 H (7.31-7.41) VBG pCO2 33.1 L (41-51) mmHg VBG pO2 65.5 H (25-47) mmHg VBG HCO3 23.6 (23-28) mmol/L VBG Total CO2 24.6 (24-29) mmol/L VBG O2 Saturation 94.1 H (60-80) % VBG Base Excess 0.7 (-2 - +2) mmol/L Sodium 138 (135-145) mmol/L Potassium 4.3 (3.5-5.0) mmol/L Chloride 102 (101-111) mmol/L Carbon Dioxide 23 (21-32) mmol/L Anion Gap 13.0 (6-13) BUN 19 (6-20) mg/dL Creatinine 0.9 (0.6-1.2) mg/dL Estimated GFR (MDRD) 82 L (>89) Glucose 95 (70-100) mg/dL Lactic Acid (0.5-2.2) mmol/L Calcium 9.0 (8.5-10.3) mg/dL Total Bilirubin (0.2-1.0) mg/dL AST (10-42) IU/L ALT (10-60) IU/L Alkaline Phosphatase (42-121) IU/L Troponin I High Sens (2.3-19.7) ng/L Total Protein (6.7-8.2) g/dL Albumin (3.2-5.5) g/dL Globulin (2.1-4.2) g/dL Albumin/Globulin Ratio (1.0-2.2) Lipase (22-51) U/L Influenza A (Rapid) (Negative) Influenza B (Rapid) (Negative) 04/17/19 04/17/19 04/17/19 Range/Units 13:05 12:13 12:12 WBC (4.8-10.8) x10^3/uL RBC (4.70-6.10) 10^6/uL Hgb (14.0-18.0) g/dL Hct (42.0-52.0) % MCV (80.0-94.0) fL MCH (27.0-31.0) pg MCHC (32.0-36.0) g/dL RDW (12.0-15.0) % Plt Count (130-450) 10^3/uL MPV (7.4-11.4) fL Neut # (Auto) (1.5-6.6) 10^3/uL Lymph # (Auto) (1.5-3.5) 10^3/uL [place] # (Auto) (0.0-1.0) 10^3/uL Eos # (Auto) (0.0-0.7) 10^3/uL Baso # (Auto) (0.0-0.1) 10^3/uL Absolute Nucleated RBC x10^3/uL Nucleated RBC % /100WBC VBG pH (7.31-7.41) VBG pCO2 (41-51) mmHg VBG pO2 (25-47) mmHg VBG HCO3 (23-28) mmol/L VBG Total CO2 (24-29) mmol/L VBG O2 Saturation (60-80) % VBG Base Excess (-2 - +2) mmol/L Sodium (135-145) mmol/L Potassium (3.5-5.0) mmol/L Chloride (101-111) mmol/L Carbon Dioxide (21-32) mmol/L Anion Gap (6-13) BUN (6-20) mg/dL Creatinine (0.6-1.2) mg/dL Estimated GFR (MDRD) (>89) Glucose (70-100) mg/dL Lactic Acid 2.9 H (0.5-2.2) mmol/L Calcium (8.5-10.3) mg/dL Total Bilirubin (0.2-1.0) mg/dL AST (10-42) IU/L ALT (10-60) IU/L Alkaline Phosphatase (42-121) IU/L Troponin I High Sens 14.9 (2.3-19.7) ng/L Total Protein (6.7-8.2) g/dL Albumin (3.2-5.5) g/dL Globulin (2.1-4.2) g/dL Albumin/Globulin Ratio (1.0-2.2) Lipase (22-51) U/L Influenza A (Rapid) Negative (Negative) Influenza B (Rapid) Negative (Negative) 04/17/19 04/17/19 Range/Units 12:12 12:12 WBC 9.3 (4.8-10.8) x10^3/uL RBC 4.76 (4.70-6.10) 10^6/uL Hgb 16.3 (14.0-18.0) g/dL Hct 47.3 (42.0-52.0) % MCV 99.4 H (80.0-94.0) fL MCH 34.2 H (27.0-31.0) pg MCHC 34.5 (32.0-36.0) g/dL RDW 12.8 (12.0-15.0) % Plt Count 194 (130-450) 10^3/uL MPV 10.5 (7.4-11.4) fL Neut # (Auto) 8.2 H (1.5-6.6) 10^3/uL Lymph # (Auto) 0.5 L (1.5-3.5) 10^3/uL [place] # (Auto) 0.5 (0.0-1.0) 10^3/uL Eos # (Auto) 0.0 (0.0-0.7) 10^3/uL Baso # (Auto) 0.0 (0.0-0.1) 10^3/uL Absolute Nucleated RBC 0.00 x10^3/uL Nucleated RBC % 0.0 /100WBC VBG pH (7.31-7.41) VBG pCO2 (41-51) mmHg VBG pO2 (25-47) mmHg VBG HCO3 (23-28) mmol/L VBG Total CO2 (24-29) mmol/L VBG O2 Saturation (60-80) % VBG Base Excess (-2 - +2) mmol/L Sodium 138 (135-145) mmol/L Potassium 4.7 (3.5-5.0) mmol/L Chloride 98 L (101-111) mmol/L Carbon Dioxide 24 (21-32) mmol/L Anion Gap 16.0 H (6-13) BUN 23 H (6-20) mg/dL Creatinine 1.1 (0.6-1.2) mg/dL Estimated GFR (MDRD) 65 L (>89) Glucose 120 H (70-100) mg/dL Lactic Acid (0.5-2.2) mmol/L Calcium 9.6 (8.5-10.3) mg/dL Total Bilirubin 1.0 (0.2-1.0) mg/dL AST 50 H (10-42) IU/L ALT 26 (10-60) IU/L Alkaline Phosphatase 62 (42-121) IU/L Troponin I High Sens (2.3-19.7) ng/L Total Protein 8.1 (6.7-8.2) g/dL Albumin 4.5 (3.2-5.5) g/dL Globulin 3.6 (2.1-4.2) g/dL Albumin/Globulin Ratio 1.3 (1.0-2.2) Lipase 30 (22-51) U/L Influenza A (Rapid) (Negative) Influenza B (Rapid) (Negative) ABX Reporting Has patient been on IV antibiotics over the past 48 hours?: No Assessment/Plan - Problem List (1) COPD with exacerbation Impression: Patient has 67.5 pack year history. He has not smoked in 20 years. He sees Sonali Suh MD at [facility]. PFTs January 2019: FVC 3.97 (101%), FEV1 1.89 L (67%), FEV1/FVC is 47 (65%). 10% improvement with bronchodilator therapy of FEV1. SVC 3.97 (94%). DLCO 11.66 which is 39% of predicted. Mild to moderate obstructive lung disease with limited evidence of benefit of bronchodilator therapy. Significant disease of the capillary alveolar level.), Emphysema (CT pulmonary angiogram done December [address] and negative. Severe on CT scans in the past. Also has chronic left upper lung nodule that is been followed on several CTs. Stable size.), Pneumonia (aspiration resulted in lung abcess 11/2017: Enterobacter, 12/2017 Strep parasanguinis. Bronchoscopy 11/2017 and 12/2017 w BAL. On prolonged abxs from 02/2018 to 09/2018). Chest x-ray from 04/17/2019 shows prominence of intersitital markings and subtle infiltrate to left upper lobe. Patient reports having a 100.2 temperature yesterday. VBG pH 7.471 and pCO2 33.1, WBC 9.3. 1. Start IV antibiotics, rocephin and azithromycin. 2. Continue home meds: duonebs, fluticasone-salmeterol, albuterol prn. 3. Encourage frequent use of acapella. (2) Left upper lobe pneumonia Impression: Patient has had pneumonia in the past (aspiration resulted in lung abcess 11/2017: Enterobacter, 12/2017 Strep parasanguinis. Bronchoscopy 11/2017 and 12/2017 with BAL. On prolonged abxs from 02/2018 to 09/2018). Chest x-ray from 04/17/2019 shows prominence of intersitital markings and subtle infiltrate to left upper lobe. Patient reports having a 100.2 temperature yesterday. VBG pH 7.471 and pCO2 33.1, WBC 9.3 on admit, decreased to 7.6 (04/18). Patient has remained afebrile. 1. Start IV antibiotics, rocephin and azithromycin. 2. Send sputum culture to micro lab. 3. Monitor daily CBC. 4. O2 per nasal cannula to keep O2 sats above 92%. Qualifiers: Pneumonia type: due to unspecified organism Qualified Code(s): J18.9 - Pneumonia, unspecified organism Qualifiers: Pneumonia type: due to unspecified organism Qualified Code(s): J18.9 - Pneumonia, unspecified organism (3) Lower extremity edema Impression: Documentation of a history of bilateral lower extremity edema. Patient takes lasix daily. Patient continues to wear his bilateral compression socks. No edema to lower extremities noted on physical exam. 1. Continue holding lasix for now. (4) Hypertension Impression: Conclusion/Plan: Patient has a history of hypertension. He takes felodipine daily. For the last 24 hours patient has had blood pressures 130-140s over 70-80s. 1. Continue felodipine. Qualifiers: Hypertension type: essential hypertension Qualified Code(s): I10 - Essential (primary) hypertension Qualifiers: Hypertension type: essential hypertension Qualified Code(s): I10 - Essential (primary) hypertension <Bullock,Yarely L - Last Filed: 04/18/19 17:17> Subjective - Subjective Subjective: denies hemoptysis. sob a bit better. Objective - Vital Signs/Intake & Output Vital Signs: Vital Signs x48h Temp Pulse Pulse Resp BP Pulse Ox 04/18/19 15:37 36.8 C 103 H 22 150/63 H 97 04/18/19 15:06 78 20 04/18/19 12:43 36.8 C 74 20 121/54 L 95 04/18/19 09:14 78 20 Intake & Output: Intake & Output 04/15/19 04/16/19 04/17/19 04/18/19 23:59 23:59 23:59 23:59 Intake Total 860 990 Output Total 500 Balance 860 490 - Objective Comments/Other: he is alert, sitting up. mild sob with speaking but completing sentences, no use of acessory muscles. he looks better than he states. No wheezing, rhonchi RRR Abd benign ankles without edema - Lab Results Fish Bones: 04/18/19 06:00 04/18/19 06:00 Other Labs: Lab Results x24hrs 04/18/19 04/18/19 Range/Units 06:00 06:00 WBC 7.6 (4.8-10.8) x10^3/uL RBC 4.32 L (4.70-6.10) 10^6/uL Hgb 14.7 (14.0-18.0) g/dL Hct 43.3 (42.0-52.0) % MCV 100.2 H (80.0-94.0) fL MCH 34.0 H (27.0-31.0) pg MCHC 33.9 (32.0-36.0) g/dL RDW 12.5 (12.0-15.0) % Plt Count 183 (130-450) 10^3/uL MPV 10.4 (7.4-11.4) fL Neut # (Auto) 5.7 (1.5-6.6) 10^3/uL Lymph # (Auto) 1.0 L (1.5-3.5) 10^3/uL [place] # (Auto) 0.7 (0.0-1.0) 10^3/uL Eos # (Auto) 0.0 (0.0-0.7) 10^3/uL Baso # (Auto) 0.0 (0.0-0.1) 10^3/uL Absolute Nucleated RBC 0.00 x10^3/uL Nucleated RBC % 0.0 /100WBC Sodium 138 (135-145) mmol/L Potassium 4.3 (3.5-5.0) mmol/L Chloride 102 (101-111) mmol/L Carbon Dioxide 23 (21-32) mmol/L Anion Gap 13.0 (6-13) BUN 19 (6-20) mg/dL Creatinine 0.9 (0.6-1.2) mg/dL Estimated GFR (MDRD) 82 L (>89) Glucose 95 (70-100) mg/dL Calcium 9.0 (8.5-10.3) mg/dL ABX Reporting Has patient been on IV antibiotics over the past 48 hours?: Yes Assessment/Plan - Problem List (1) COPD with exacerbation Impression: He still feels subjectively symptomatic. Objective exam is improved. I will continue antibiotics for total of 72 hours and then reassess. Continue IV antibiotics, duo nebs, inhaled steroids. On Acapella and using it. He is not on p.o. or IV steroids and seems to be doing okay without them. (2) Left upper lobe pneumonia Impression: Day #2 of antibiotics. Still trying to induce a sputum since the first 1 had t oo many epithelial cells. At this time O2 sats are stable with stable oxygen requirement. White cell count remains normal. Plan on 72 hours of IV antibiotics and then de-escalating to oral antibiotics depending on what culture show if I can induce sputum. Blood cultures negative. Qualifiers: Pneumonia type: due to unspecified organism Qualified Code(s): J18.9 - Pneumonia, unspecified organism (3) Lower extremity edema Impression: None present on admission or today. Continue to hold Lasix. (4) Hypertension Impression: On his felodipine. Blood pressure is 120-130s most of the day. Rarely will be 150 systolic. No change in medication at this time. Qualifiers: Hypertension type: essential hypertension Qualified Code(s): I10 - Essential (primary) hypertension
[2019-04-18] MEDS: AZITHROMYCIN INJ 500 MG in SODIUM CHLORIDE 0.9% 250 ML IV SCH (09:28)
[2019-04-18] MEDS: guaiFENesin 600 MG TABLET PO SCH ×2 (12:02→20:31)
[2019-04-18] MEDS: traZODone 50 MG TABLET PO SCH (20:31)
[2019-04-18] MEDS: BENZONATATE 100 MG CAPSULE PO PRN (22:28)
[2019-04-19] MEDS: SODIUM CHLORIDE FLUSH 0.9% 10 ML SYRINGE IVP SCH ×3 (00:38→21:21)
[2019-04-19 05:39] LABS: BASOPHILS % (AUTO) 0.3 %; EOSINOPHILS # (AUTO) 0.2 10^3/uL (0.0-0.7); EOSINOPHILS % (AUTO) 2.4 %; HGB - HEMOGLOBIN 14.3 g/dL (14.0-18.0); LYMPHOCYTES # (AUTO) 1.5 10^3/uL (1.5-3.5); LYMPHOCYTES % (AUTO) 21.7 %; MEAN CORPUSCULAR HEMOGLOBIN 33.8 pg (27.0-31.0); MEAN CORPUSCULAR HGB CONC 33.4 g/dL (32.0-36.0); MEAN CORPUSCULAR VOLUME 101.2 fL (80.0-94.0); MEAN PLATELET VOLUME 10.5 fL (7.4-11.4); MONOCYTES # (AUTO) 0.8 10^3/uL (0.0-1.0); MONOCYTES % (AUTO) 11.2 %; NEUTROPHILS # (AUTO) 4.2 10^3/uL (1.5-6.6); NEUTROPHILS % (AUTO) 63.2 %; PLT - PLATELET COUNT 169 10^3/uL (130-450); RED BLOOD COUNT 4.23 10^6/uL (4.70-6.10); RED CELL DISTRIBUTION WIDTH 12.7 % (12.0-15.0); WHITE BLOOD COUNT 6.7 x10^3/uL (4.8-10.8)
[2019-04-19 05:49] LABS: CALCIUM 8.5 mg/dL (8.5-10.3); CREATININE 0.8 mg/dL (0.6-1.2)
[2019-04-19] MEDS: PANTOPRAZOLE 40 MG TABLET PO SCH (06:22)
[2019-04-19] MEDS: BENZONATATE 100 MG CAPSULE PO PRN (06:22)
[2019-04-19] MEDS: FORMOTEROL FUMARATE NEB 20 MCG/2 ML INH SCH ×2 (08:07→21:04)
[2019-04-19] MEDS: BUDESONIDE 0.5 MG/2 ML NEB INH SCH ×2 (08:07→21:04)
[2019-04-19] MEDS: IPRATROPIUM/ALBUTEROL 3 ML NEB INH SCH ×3 (08:07→21:04)
[2019-04-19] MEDS: allopurinoL 100 MG TABLET PO SCH (08:15)
[2019-04-19] MEDS: FELODIPINE ER 2.5 MG TABLET PO SCH (08:15)
[2019-04-19] MEDS: guaiFENesin 600 MG TABLET PO SCH ×2 (08:15→21:21)
[2019-04-19] MEDS: cefTRIAXone 1 GM in SODIUM CHLORIDE 0.9% MINIBAG 100 ML IV SCH (08:15)
[2019-04-19] MEDS: FERROUS GLUCONATE 324 MG TABLET PO SCH (08:15)
[2019-04-19] MEDS: DULoxetine 30 MG CAPSULE PO SCH (08:15)
[2019-04-19] MEDS: AZITHROMYCIN INJ 500 MG in SODIUM CHLORIDE 0.9% 250 ML IV SCH (08:49)
--- NOTE | 2019-04-19 13:07 | PROVIDER PROGRESS NOTE ---
Subjective - Prog Note Date Prog Note Date: 04/19/19 Prog Note Time: 13:05 - Subjective Pt reports feeling: No change Subjective: He remained stable with his oxygen requirement. No fever spikes. White cell count remains normal. Main complaint is subjective with regards to severe dyspnea on exertion. Not at baseline. Current Medications - Current Medications Current Medications: Active Medications Acetaminophen (Tylenol) 650 mg PO Q4HR PRN PRN Reason: Pain 1 to 4 Albuterol () 2.5 mg INH Q2HR PRN PRN Reason: Wheezing Last Admin: 04/18/19 05:31 Dose: 2.5 mg Albuterol/Ipratropium (Duoneb) 3 ml INH 0900,1500,2100 [facility] Last Admin: 04/19/19 08:07 Dose: 3 ml Allopurinol (Zyloprim) 300 mg PO DAILY [facility] Last Admin: 04/19/19 08:15 Dose: 300 mg Benzonatate (Tessalon) 100 mg PO TID PRN PRN Reason: Cough Last Admin: 04/19/19 06:22 Dose: 100 mg Budesonide (Pulmicort) 0.5 mg INH RTBID [facility] Last Admin: 04/19/19 08:07 Dose: 0.5 mg Duloxetine HCl (Cymbalta) 60 mg PO DAILY [facility] Last Admin: 04/19/19 08:15 Dose: 60 mg Felodipine (Plendil) 10 mg PO DAILY [facility] Last Admin: 04/19/19 08:15 Dose: 10 mg Ferrous Gluconate (Fergon) 324 mg PO DAILYWM [facility] Last Admin: 04/19/19 08:15 Dose: 324 mg Formoterol Fumarate (Perforomist) 20 mcg INH RTBID [facility] Last Admin: 04/19/19 08:07 Dose: 20 mcg Guaifenesin (Mucinex) 600 mg PO BID [facility] Last Admin: 04/19/19 08:15 Dose: 600 mg Ceftriaxone Sodium 1 gm/ (Sodium Chloride) 100 mls @ 200 mls/hr IV DAILY [facility] Stop: 04/21/19 09:29 Last Infusion: 04/19/19 08:45 Dose: Infused Ondansetron HCl (Zofran Inj) 4 mg IVP Q6HR PRN PRN Reason: Nausea / Vomiting Ondansetron HCl (Zofran Odt) 4 mg TL Q6HR PRN PRN Reason: Nausea / Vomiting Oxycodone HCl (Roxicodone) 5 mg PO Q4HR PRN PRN Reason: Pain 5 to 7 Pantoprazole Sodium (Protonix) 40 mg PO QDAC [facility] Last Admin: 04/19/19 06:22 Dose: 40 mg Sodium Chloride (Normal Saline Flush 0.9%) 10 ml IVP PRN PRN PRN Reason: NEEDED PER PROVIDER ORDERS Last Admin: 04/18/19 11:08 Dose: 10 ml Sodium Chloride (Normal Saline Flush 0.9%) 10 ml IVP 0100,0900,1700 [facility] Last Admin: 04/19/19 08:50 Dose: Not Given Trazodone HCl (Desyrel) 50 mg PO HS [facility] Last Admin: 04/18/19 20:31 Dose: 50 mg Aspirin [Aspir 81] 81 mg PO DAILY 08/18/12 Allopurinol [Zyloprim] 300 mg PO DAILY 02/13/16 Cholecalciferol (Vitamin D3) [Vitamin D3] 2,000 unit PO DAILY 02/13/16 Cyanocobalamin (Vitamin B-12) [Vitamin B-12] 1,000 mcg PO DAILY 02/13/16 Felodipine [Felodipine ER] 10 mg PO DAILY 02/13/16 Ferrous Gluconate [Iron] 65 mg PO DAILYWM 02/13/16 [place]-3/Dha/Epa/Fish Oil [Fish Oil 1,000 mg Softgel] 1 cap PO DAILY 02/13/16 Simvastatin [Zocor] 10 mg PO QPM 02/13/16 Albuterol 2.5 mg INH Q4H PRN 04/17/19 Albuterol Sulfate [Proair Hfa Inhaler] 2 puffs INH Q4H PRN 04/17/19 Diclofenac Sodium 2 g TOP BID PRN 04/17/19 Duloxetine HCl 60 mg PO DAILY 04/17/19 Fluticasone/Salmeterol [Advair 250-50 Diskus] 1 puffs INH BID 04/17/19 Loratadine [Claritin] 10 mg PO DAILY 04/17/19 Montelukast [Singulair] 10 mg PO QPM 04/17/19 Omeprazole 20 mg PO BID 04/17/19 Sildenafil Citrate [Viagra] 100 mg PO DAILY PRN 04/17/19 Tiotropium [place] [Spiriva Respimat] 2 puffs INH DAILY 04/17/19 polyethylene glycoL 3350 [Miralax] 17 gm PO DAILY PRN 04/17/19 predniSONE [Deltasone] 10 mg PO DAILYWM 04/17/19 traZODone [Desyrel] 50 mg PO HS PRN 04/17/19 Objective - Vital Signs/Intake & Output Reviewed Vital Signs: Yes Vital Signs: Vital Signs x48h Temp Pulse Pulse Resp BP Pulse Ox 04/19/19 08:08 36.9 C 96 18 143/88 H 92 04/19/19 08:07 78 22 Intake & Output: Intake & Output 04/16/19 04/17/19 04/18/19 04/19/19 23:59 23:59 23:59 23:59 Intake Total 860 1420 1510 Output Total 900 900 Balance 860 520 610 - Objective General Appearance: positive: Alert, Mild distress Eyes Bilateral: positive: PERRL, EOMI ENT: positive: Other (Nasal tone of voice but no rhinorrhea or coryza.) Neck: positive: No JVD Respiratory: positive: Chest non-tender, Wheezes. negative: Rales, Rhonchi Cardiovascular: positive: Regular rate & rhythm. negative: Gallop/S4, Friction rub Abdomen: positive: Non-tender, Nml bowel sounds, No distention. negative: Guarding, Rebound Skin: positive: Warm, Dry Extremities: positive: Full ROM, Pedal edema (Trace around the ankles) Neurologic/Psychiatric: positive: Oriented x3, CN's nml (2-12), Motor nml - Lab Results Fish Bones: 04/19/19 05:15 04/19/19 05:15 Other Labs: Lab Results x24hrs 04/19/19 04/19/19 Range/Units 05:15 05:15 WBC 6.7 (4.8-10.8) x10^3/uL RBC 4.23 L (4.70-6.10) 10^6/uL Hgb 14.3 (14.0-18.0) g/dL Hct 42.8 (42.0-52.0) % MCV 101.2 H (80.0-94.0) fL MCH 33.8 H (27.0-31.0) pg MCHC 33.4 (32.0-36.0) g/dL RDW 12.7 (12.0-15.0) % Plt Count 169 (130-450) 10^3/uL MPV 10.5 (7.4-11.4) fL Neut # (Auto) 4.2 (1.5-6.6) 10^3/uL Lymph # (Auto) 1.5 (1.5-3.5) 10^3/uL [place] # (Auto) 0.8 (0.0-1.0) 10^3/uL Eos # (Auto) 0.2 (0.0-0.7) 10^3/uL Baso # (Auto) 0.0 (0.0-0.1) 10^3/uL Absolute Nucleated RBC 0.00 x10^3/uL Nucleated RBC % 0.0 /100WBC Sodium 137 (135-145) mmol/L Potassium 3.8 (3.5-5.0) mmol/L Chloride 102 (101-111) mmol/L Carbon Dioxide 27 (21-32) mmol/L Anion Gap 8.0 (6-13) BUN 18 (6-20) mg/dL Creatinine 0.8 (0.6-1.2) mg/dL Estimated GFR (MDRD) 94 (>89) Glucose 95 (70-100) mg/dL Calcium 8.5 (8.5-10.3) mg/dL ABX Reporting Has patient been on IV antibiotics over the past 48 hours?: Yes Assessment/Plan - Problem List (1) COPD with exacerbation Impression: He continues to feel subjectively symptomatic. Easily short of breath with minimal activity such as trying to get up out of bed to go urinate. Takes him several minutes if not 10 minutes to recover when he gets back in the bed. Objective exam is improved. I will continue antibiotics for total of 72 hours and then reassess.72 hours will be tomorrow. Continue IV antibiotics, duo nebs, inhaled steroids. On Acapella and using it. He is not on p.o. or IV steroids and seems to be doing okay without them. I have asked him to please get up and walk in the hallways. (2) Left upper lobe pneumonia Impression: Day #3 of antibiotics. Sputum Gram stain shows gram-positive cocci. At this time O2 sats are stable with stable oxygen requirement. White cell count remains normal. Plan on 72 hours of IV antibiotics and then de-escalating to oral antibiotics depending on what culture show if I can induce sputum. That will be tomorrow. Blood cultures negative. Qualifiers: Pneumonia type: due to unspecified organism Qualified Code(s): J18.9 - Pneumonia, unspecified organism (3) Lower extremity edema Impression: None present so far. Continue to hold Lasix. (4) Hypertension Impression: On his felodipine. Blood pressure is 140s-150's systolic. No change in med. Qualifiers: Hypertension type: essential hypertension Qualified Code(s): I10 - Essential (primary) hypertension
[2019-04-19] MEDS: traZODone 50 MG TABLET PO SCH (21:21)
[2019-04-20] MEDS: SODIUM CHLORIDE FLUSH 0.9% 10 ML SYRINGE IVP SCH ×3 (00:07→15:41)
[2019-04-20 05:17] LABS: BASOPHILS % (AUTO) 0.4 %; EOSINOPHILS # (AUTO) 0.3 10^3/uL (0.0-0.7); HGB - HEMOGLOBIN 14.6 g/dL (14.0-18.0); LYMPHOCYTES # (AUTO) 1.4 10^3/uL (1.5-3.5); LYMPHOCYTES % (AUTO) 20.5 %; MEAN CORPUSCULAR HGB CONC 33.2 g/dL (32.0-36.0); MEAN CORPUSCULAR VOLUME 99.3 fL (80.0-94.0); MEAN PLATELET VOLUME 10.5 fL (7.4-11.4); MONOCYTES # (AUTO) 0.7 10^3/uL (0.0-1.0); MONOCYTES % (AUTO) 9.9 %; NEUTROPHILS # (AUTO) 4.3 10^3/uL (1.5-6.6); NEUTROPHILS % (AUTO) 64.2 %; PLT - PLATELET COUNT 171 10^3/uL (130-450); RED BLOOD COUNT 4.43 10^6/uL (4.70-6.10); RED CELL DISTRIBUTION WIDTH 12.5 % (12.0-15.0); WHITE BLOOD COUNT 6.7 x10^3/uL (4.8-10.8)
[2019-04-20 05:44] LABS: CALCIUM 8.8 mg/dL (8.5-10.3); CREATININE 0.7 mg/dL (0.6-1.2)
[2019-04-20] MEDS: PANTOPRAZOLE 40 MG TABLET PO SCH (06:06)
[2019-04-20] MEDS: BUDESONIDE 0.5 MG/2 ML NEB INH SCH ×2 (08:04→21:37)
[2019-04-20] MEDS: IPRATROPIUM/ALBUTEROL 3 ML NEB INH SCH ×3 (08:04→21:37)
[2019-04-20] MEDS: FORMOTEROL FUMARATE NEB 20 MCG/2 ML INH SCH ×2 (08:04→21:40)
[2019-04-20] MEDS: FELODIPINE ER 2.5 MG TABLET PO SCH (08:22)
[2019-04-20] MEDS: DOCUSATE SODIUM 250 MG CAPSULE PO SCH (08:22)
[2019-04-20] MEDS: guaiFENesin 600 MG TABLET PO SCH ×2 (08:23→22:07)
[2019-04-20] MEDS: allopurinoL 100 MG TABLET PO SCH (08:23)
[2019-04-20] MEDS: FERROUS GLUCONATE 324 MG TABLET PO SCH (08:23)
[2019-04-20] MEDS: DULoxetine 30 MG CAPSULE PO SCH (08:23)
[2019-04-20] MEDS: cefTRIAXone 1 GM in SODIUM CHLORIDE 0.9% MINIBAG 100 ML IV SCH (08:28)
[2019-04-20] MEDS: SENNA 8.6 MG TABLET PO SCH ×3 (08:30→22:06)
--- NOTE | 2019-04-20 12:07 | PROVIDER PROGRESS NOTE ---
Subjective - Prog Note Date Prog Note Date: 04/20/19 Prog Note Time: 12:04 - Subjective Pt reports feeling: No change Subjective: He got up out of bed and walk down the hallway yesterday. About 40 feet. Severely tachypneic, short of breath and desaturated. At rest he stays stable. Current Medications - Current Medications Current Medications: Active Medications Acetaminophen (Tylenol) 650 mg PO Q4HR PRN PRN Reason: Pain 1 to 4 Albuterol () 2.5 mg INH Q2HR PRN PRN Reason: Wheezing Last Admin: 04/18/19 05:31 Dose: 2.5 mg Albuterol/Ipratropium (Duoneb) 3 ml INH 0900,1500,2100 [facility] Last Admin: 04/20/19 08:04 Dose: 3 ml Allopurinol (Zyloprim) 300 mg PO DAILY [facility] Last Admin: 04/20/19 08:23 Dose: 300 mg Benzonatate (Tessalon) 100 mg PO TID PRN PRN Reason: Cough Last Admin: 04/19/19 06:22 Dose: 100 mg Budesonide (Pulmicort) 0.5 mg INH RTBID [facility] Last Admin: 04/20/19 08:04 Dose: 0.5 mg Docusate Sodium (Colace 250mg Capsule) 250 - 500 mg PO DAILY [facility] Last Admin: 04/20/19 08:22 Dose: 250 mg Duloxetine HCl (Cymbalta) 60 mg PO DAILY [facility] Last Admin: 04/20/19 08:23 Dose: 60 mg Felodipine (Plendil) 10 mg PO DAILY [facility] Last Admin: 04/20/19 08:22 Dose: 10 mg Ferrous Gluconate (Fergon) 324 mg PO DAILYWM [facility] Last Admin: 04/20/19 08:23 Dose: 324 mg Formoterol Fumarate (Perforomist) 20 mcg INH RTBID [facility] Last Admin: 04/20/19 08:04 Dose: 20 mcg Guaifenesin (Mucinex) 600 mg PO BID [facility] Last Admin: 04/20/19 08:23 Dose: 600 mg Ceftriaxone Sodium 1 gm/ (Sodium Chloride) 100 mls @ 200 mls/hr IV DAILY [facility] Stop: 04/21/19 09:29 Last Infusion: 04/20/19 08:58 Dose: Infused Ondansetron HCl (Zofran Inj) 4 mg IVP Q6HR PRN PRN Reason: Nausea / Vomiting Ondansetron HCl (Zofran Odt) 4 mg TL Q6HR PRN PRN Reason: Nausea / Vomiting Oxycodone HCl (Roxicodone) 5 mg PO Q4HR PRN PRN Reason: Pain 5 to 7 Pantoprazole Sodium (Protonix) 40 mg PO QDAC [facility] Last Admin: 04/20/19 06:06 Dose: 40 mg Senna (Senokot) 17.2 - 25.8 mg PO Q6H [facility] Stop: 04/21/19 02:01 Last Admin: 04/20/19 08:30 Dose: 17.2 mg Sodium Chloride (Normal Saline Flush 0.9%) 10 ml IVP PRN PRN PRN Reason: NEEDED PER PROVIDER ORDERS Last Admin: 04/18/19 11:08 Dose: 10 ml Sodium Chloride (Normal Saline Flush 0.9%) 10 ml IVP 0100,0900,1700 [facility] Last Admin: 04/20/19 08:28 Dose: 10 ml Trazodone HCl (Desyrel) 50 mg PO HS [facility] Last Admin: 04/19/19 21:21 Dose: 50 mg Aspirin [Aspir 81] 81 mg PO DAILY 08/18/12 Allopurinol [Zyloprim] 300 mg PO DAILY 02/13/16 Cholecalciferol (Vitamin D3) [Vitamin D3] 2,000 unit PO DAILY 02/13/16 Cyanocobalamin (Vitamin B-12) [Vitamin B-12] 1,000 mcg PO DAILY 02/13/16 Felodipine [Felodipine ER] 10 mg PO DAILY 02/13/16 Ferrous Gluconate [Iron] 65 mg PO DAILYWM 02/13/16 [place]-3/Dha/Epa/Fish Oil [Fish Oil 1,000 mg Softgel] 1 cap PO DAILY 02/13/16 Simvastatin [Zocor] 10 mg PO QPM 02/13/16 Albuterol 2.5 mg INH Q4H PRN 04/17/19 Albuterol Sulfate [Proair Hfa Inhaler] 2 puffs INH Q4H PRN 04/17/19 Diclofenac Sodium 2 g TOP BID PRN 04/17/19 Duloxetine HCl 60 mg PO DAILY 04/17/19 Fluticasone/Salmeterol [Advair 250-50 Diskus] 1 puffs INH BID 04/17/19 Loratadine [Claritin] 10 mg PO DAILY 04/17/19 Montelukast [Singulair] 10 mg PO QPM 04/17/19 Omeprazole 20 mg PO BID 04/17/19 Sildenafil Citrate [Viagra] 100 mg PO DAILY PRN 04/17/19 Tiotropium [place] [Spiriva Respimat] 2 puffs INH DAILY 04/17/19 polyethylene glycoL 3350 [Miralax] 17 gm PO DAILY PRN 04/17/19 predniSONE [Deltasone] 10 mg PO DAILYWM 04/17/19 traZODone [Desyrel] 50 mg PO HS PRN 04/17/19 Objective - Vital Signs/Intake & Output Reviewed Vital Signs: Yes Vital Signs: Vital Signs x48h Temp Pulse Pulse Resp BP Pulse Ox 04/20/19 08:05 82 16 04/20/19 07:37 36.9 C 95 16 139/73 H 94 Intake & Output: Intake & Output 04/17/19 04/18/19 04/19/19 04/20/19 23:59 23:59 23:59 23:59 Intake Total 860 1420 1890 100 Output Total 900 2050 425 Balance 860 520 -160 -325 - Objective General Appearance: positive: No acute distress, Alert, Other (Laying in bed he looks perfectly comfortable. Does get a little bit short of breath with conversation. But not severely so. When I watch him get up to try and sit at the side of the bed to ambulate to bathroom respiratory rate goes up, use of accessory muscles kicks in.) Eyes Bilateral: positive: PERRL Neck: positive: No JVD. negative: Stiff neck Respiratory: positive: Chest non-tender, Wheezes. negative: Rales, Rhonchi Cardiovascular: positive: Regular rate & rhythm. negative: Gallop/S4, Friction rub Abdomen: positive: No organomegaly, Nml bowel sounds, No distention Skin: positive: Warm, Dry Extremities: positive: Full ROM, No pedal edema Neurologic/Psychiatric: positive: Oriented x3, CN's nml (2-12) - Lab Results Fish Bones: 04/20/19 05:05 04/20/19 05:05 Other Labs: Lab Results x24hrs 04/20/19 04/20/19 Range/Units 05:05 05:05 WBC 6.7 (4.8-10.8) x10^3/uL RBC 4.43 L (4.70-6.10) 10^6/uL Hgb 14.6 (14.0-18.0) g/dL Hct 44.0 (42.0-52.0) % MCV 99.3 H (80.0-94.0) fL MCH 33.0 H (27.0-31.0) pg MCHC 33.2 (32.0-36.0) g/dL RDW 12.5 (12.0-15.0) % Plt Count 171 (130-450) 10^3/uL MPV 10.5 (7.4-11.4) fL Neut # (Auto) 4.3 (1.5-6.6) 10^3/uL Lymph # (Auto) 1.4 L (1.5-3.5) 10^3/uL [place] # (Auto) 0.7 (0.0-1.0) 10^3/uL Eos # (Auto) 0.3 (0.0-0.7) 10^3/uL Baso # (Auto) 0.0 (0.0-0.1) 10^3/uL Absolute Nucleated RBC 0.00 x10^3/uL Nucleated RBC % 0.0 /100WBC Sodium 137 (135-145) mmol/L Potassium 3.9 (3.5-5.0) mmol/L Chloride 101 (101-111) mmol/L Carbon Dioxide 28 (21-32) mmol/L Anion Gap 8.0 (6-13) BUN 14 (6-20) mg/dL Creatinine 0.7 (0.6-1.2) mg/dL Estimated GFR (MDRD) 110 (>89) Glucose 100 (70-100) mg/dL Calcium 8.8 (8.5-10.3) mg/dL ABX Reporting Has patient been on IV antibiotics over the past 48 hours?: Yes Assessment/Plan - Problem List (1) COPD with exacerbation Impression: This is a process that is keeping him in the hospital. He continues to feel subjectively symptomatic. Easily short of breath with minimal activity such as trying to get up out of bed to go urinate. Exhausted with just walking down the hallway. Yesterday he almost did not make it back to his bed after walking 40 feet.Desaturated into the high 70s even with nasal cannula oxygen. Continue IV antibiotics, duo nebs, inhaled steroids. On Acapella and using it. Add oral steroids to taper over 5 days. (2) Left upper lobe pneumonia Impression: Day #4 of antibiotics. Sputum Gram stain shows gram-positive cocci. At this time O2 sats are stable with stable oxygen requirement Unless he gets up to walk. White cell count remains normal. Change to po levaquin. Qualifiers: Pneumonia type: due to unspecified organism Qualified Code(s): J18.9 - Pneumonia, unspecified organism
[2019-04-20] MEDS ORDERED: methylPREDNISolone 4 MG TABLET PO SCH (13:00)
[2019-04-20] MEDS: BENZONATATE 100 MG CAPSULE PO PRN (15:41)
[2019-04-20] MEDS: traZODone 50 MG TABLET PO SCH (22:07)
[2019-04-21] MEDS: SODIUM CHLORIDE FLUSH 0.9% 10 ML SYRINGE IVP SCH ×2 (00:08→09:02)
[2019-04-21] MEDS: SENNA 8.6 MG TABLET PO SCH (04:19)
[2019-04-21] MEDS: PANTOPRAZOLE 40 MG TABLET PO SCH (06:26)
[2019-04-21] MEDS ORDERED: methylPREDNISolone 4 MG TABLET PO SCH (08:00)
[2019-04-21] MEDS: BUDESONIDE 0.5 MG/2 ML NEB INH SCH (08:12)
[2019-04-21] MEDS: FORMOTEROL FUMARATE NEB 20 MCG/2 ML INH SCH (08:13)
[2019-04-21] MEDS: IPRATROPIUM/ALBUTEROL 3 ML NEB INH SCH ×2 (08:13→13:50)
[2019-04-21] MEDS: DOCUSATE SODIUM 250 MG CAPSULE PO SCH (08:58)
[2019-04-21] MEDS: DULoxetine 30 MG CAPSULE PO SCH (08:59)
[2019-04-21] MEDS: allopurinoL 100 MG TABLET PO SCH (08:59)
[2019-04-21] MEDS: guaiFENesin 600 MG TABLET PO SCH (08:59)
[2019-04-21] MEDS ORDERED: levoFLOXacin 250 MG TABLET PO SCH (09:00)
[2019-04-21] MEDS: FELODIPINE ER 2.5 MG TABLET PO SCH (09:03)
[2019-04-21 09:34] LABS: BASOPHILS % (AUTO) 0.4 %; EOSINOPHILS # (AUTO) 0.2 10^3/uL (0.0-0.7); EOSINOPHILS % (AUTO) 2.2 %; HGB - HEMOGLOBIN 14.7 g/dL (14.0-18.0); LYMPHOCYTES # (AUTO) 1.4 10^3/uL (1.5-3.5); LYMPHOCYTES % (AUTO) 20.6 %; MEAN CORPUSCULAR HEMOGLOBIN 33.9 pg (27.0-31.0); MEAN CORPUSCULAR HGB CONC 34.3 g/dL (32.0-36.0); MEAN CORPUSCULAR VOLUME 98.8 fL (80.0-94.0); MEAN PLATELET VOLUME 10.4 fL (7.4-11.4); MONOCYTES # (AUTO) 0.6 10^3/uL (0.0-1.0); NEUTROPHILS # (AUTO) 4.5 10^3/uL (1.5-6.6); NEUTROPHILS % (AUTO) 66.6 %; PLT - PLATELET COUNT 196 10^3/uL (130-450); RED BLOOD COUNT 4.34 10^6/uL (4.70-6.10); RED CELL DISTRIBUTION WIDTH 12.1 % (12.0-15.0); WHITE BLOOD COUNT 6.7 x10^3/uL (4.8-10.8)
[2019-04-21 09:45] LABS: CALCIUM 8.7 mg/dL (8.5-10.3); CREATININE 0.7 mg/dL (0.6-1.2)
--- NOTE | 2019-04-21 11:08 | Discharge Plan ---
Discharge Plan Problem Reviewed?: Yes Disposition: Home, Self Care Condition: Poor Prescriptions: Levofloxacin [Levaquin] 750 mg PO DAILY #3 tablet methylPREDNISolone [Medrol] 16 mg PO DAILYWM #1 tablet methylPREDNISolone [Medrol] 12 mg PO DAILYWM #1 tablet methylPREDNISolone [Medrol] 8 mg PO DAILYWM #1 tablet methylPREDNISolone [Medrol] 4 mg PO DAILYWM #1 tablet Diet: Regular Activity Restrictions: Activity as Tolerated Shower Restrictions: No (fall precaution) Instruction Topics: Levofloxacin tablets, Pneumonia, COPD Health Concerns: COPD exacerbation, pneumonia Plan of Treatment: RT had O2 desaturation study for you which indicate you can ambulate without obvious respiratory distress on NC of 3 liter of O2, advise you continue safely to use home oxygen as the schedule, breath treatment as the schedule as well. You are prescribed short term of steroid for your COPD. Levaquin is prescribed for you to finish the treatment course for your pneumonia. Care Goals: stabilization and improvement for your medical conditions Assessment: discussed with you the care plan, you understood. Additional Instructions or Follow Up instructions: You may followup your PCP in one week, followup your Grinding Wheel Operator as out-pt. Should your symptoms return or worsen, you may present ER or call 911 for help. No Smoking: If you smoke, Please STOP! Call for help. Follow-up with: Pankaj Cervantes PA-C [Primary Care Provider] -
[2019-04-21 11:35] VITALS: BP 131/57
--- NOTE | 2019-04-21 12:25 | DISCHARGE SUMMARY ---
Discharge Summary Admit Date: 04/17/19 Discharge Date: 04/21/19 Discharging Provider: Kristian Barraza Primary Care Provider: Pankaj Coppola Condition at Discharge: Poor Discharge Disposition: 01 Home, Self Care Discharge Facility Name: home - DIAGNOSES Admission Diagnoses: (1) COPD with exacerbation (2) Left upper lobe pneumonia (3) Hypertension (4) Lower extremity edema (5) Gastroesophageal reflux disease with hiatal hernia Discharge Diagnoses with Status of Each Condition: (1) COPD with exacerbation improved/resolved. pt has 96% sats on 3 liter of O2. pt walked about 120 feet with RT and PT without respiratory distress on 3 liter of O2. pt took 3 liter of O2 at home. pt is prescribed short term of steroid. advise continue home breath treatment and medications as the schedule. (2) Left upper lobe pneumonia resolved/improved. pt's WBC is normal. pt has no fever or chill. pt is prescribed Levaquin to finish the treatment course. pt walked about 150 feet with RT and PT without respiratory distress on 3 liter of O2. pt took 3 liter of O2 at home. pt has 96% sats on 3 liter of O2. (3) Hypertension stable (4) Lower extremity edema stable/resolved (5) Gastroesophageal reflux disease with hiatal hernia stable pt declined to d/c to SNF and pulmonary rehab. - HPI History of Present Illness: refer from Dr. Bullock's HPI on 04/17/2019 This patient has known COPD and is followed by Sonali Galvez at [facility] pulmonology in [place]. He usually has about 2 exacerbations every 6 months. He is not on home O2. He had complications of aspiration pneumonia in 2018 resulting in lung abscess. This continued with treatment into 2019 with 2 bronchoscopies and bronchoalveolar lavage. He is negative for TB. He was recently treated for a COPD exacerbation with a steroid taper and was left with maintenance therapy at prednisone 10 mg a day. In spite of this he had increasing cough, shortness of breath, and more phlegm over the last 6 days. He is tired, has no appetite. Fever last night was to 100.2. There is no hemoptysis. No orthopnea. He was evaluated by Dr. Cantrell. He had mild respiratory distress but was able to speak in full sentences. But he could not complete paragraphs. He had diminished lung his temperature in the ER was 37.1. Pulse was 125. Respiratory rate 36. Blood pressure 125/78 and he was 70% on room air requiring 3 L to bring him up to 95%. His chest x-ray shows a left upper lobe infiltrate. His white cell count is 9.3. He is now being brought into the hospital for treatment of pneumonia and COPD exacerbation. Sounds diffusely. - HOSPITAL COURSE Hospital Course: pt was admitted for dyspnea. pt was sound to have COPD exacerbation and left upper lobe pneumonia. Pt was treated with IV of antibiotics and steroid. Also pt had PT evaluation and treatment. After treatment, pt was evaluated by RT and PT. Pt walked about 120 feet without respiratory distress on 3 liter of O2. pt took 3 liter of O2 at home. beam worker talked with pt about the caregiver for pt. pt declined to d/c to SNF and pulmonary rehab. The detail hospital course as the below. (1) COPD with exacerbation improved/resolved. pt has 96% sats on 3 liter of O2. pt walked about 120 feet with RT and PT without respiratory distress on 3 liter of O2. pt took 3 liter of O2 at home. pt is prescribed short term of steroid. advise continue home breath treatment and medications as the schedule. (2) Left upper lobe pneumonia resolved/improved. pt's WBC is normal. pt has no fever or chill. pt is prescribe d Lamontaquin to finish the treatment course. pt walked about 150 feet with RT and PT without respiratory distress on 3 liter of O2. pt took 3 liter of O2 at home. pt has 96% sats on 3 liter of O2. (3) Hypertension stable (4) Lower extremity edema stable/resolved (5) Gastroesophageal reflux disease with hiatal hernia stable pt declined to d/c to SNF and pulmonary rehab. - ALLERGIES Allergies/Adverse Reactions: Allergies Allergy/AdvReac Type Severity Reaction Status Date / Time No Known Drug Allergies Allergy Verified 04/17/19 12:03 - MEDICATIONS Home Medications: Ambulatory Orders Medication Instructions Recorded Confirmed Aspirin [Aspir 81] 81 mg PO DAILY 08/18/12 04/17/19 Allopurinol [Zyloprim] 300 mg PO DAILY 02/13/16 04/17/19 Cholecalciferol (Vitamin D3) 2,000 unit PO DAILY 02/13/16 04/17/19 [Vitamin D3] Cyanocobalamin (Vitamin B-12) 1,000 mcg PO DAILY 02/13/16 04/17/19 [Vitamin B-12] Felodipine [Felodipine ER] 10 mg PO DAILY 02/13/16 04/17/19 Ferrous Gluconate [Iron] 65 mg PO DAILYWM 02/13/16 04/17/19 [place]-3/Dha/Epa/Fish Oil [Fish Oil 1 cap PO DAILY 02/13/16 04/17/19 1,000 mg Softgel] Simvastatin [Zocor] 10 mg PO QPM 02/13/16 04/17/19 Albuterol 2.5 mg INH Q4H PRN 04/17/19 04/17/19 Albuterol Sulfate [Proair Hfa 2 puffs INH Q4H PRN 04/17/19 04/17/19 Inhaler] Diclofenac Sodium 2 g TOP BID PRN 04/17/19 04/17/19 Duloxetine HCl 60 mg PO DAILY 04/17/19 04/17/19 Fluticasone/Salmeterol [Advair 1 puffs INH BID 04/17/19 04/17/19 250-50 Diskus] Loratadine [Claritin] 10 mg PO DAILY 04/17/19 04/17/19 Montelukast [Singulair] 10 mg PO QPM 04/17/19 04/17/19 Omeprazole 20 mg PO BID 04/17/19 04/17/19 Sildenafil Citrate [Viagra] 100 mg PO DAILY PRN 04/17/19 04/17/19 Tiotropium [place] [Spiriva 2 puffs INH DAILY 04/17/19 04/17/19 Respimat] polyethylene glycoL 3350 [Miralax] 17 gm PO DAILY PRN 04/17/19 04/17/19 predniSONE [Deltasone] 10 mg PO DAILYWM 04/17/19 04/17/19 traZODone [Desyrel] 50 mg PO HS PRN 04/17/19 04/17/19 Levofloxacin [Levaquin] 750 mg PO DAILY #3 tablet 04/21/19 methylPREDNISolone [Medrol] 4 mg PO DAILYWM #1 tablet 04/21/19 methylPREDNISolone [Medrol] 8 mg PO DAILYWM #1 tablet 04/21/19 methylPREDNISolone [Medrol] 12 mg PO DAILYWM #1 tablet 04/21/19 methylPREDNISolone [Medrol] 16 mg PO DAILYWM #1 tablet 04/21/19 - PHYSICAL EXAM AT DISCHARGE General Appearance: positive: No acute distress, Alert. negative: Lethargic Eyes Bilateral: positive: Normal inspection, PERRL, EOMI, No lid inflammation ENT: positive: ENT inspection nml, Pharynx nml, No signs of dehydration. negative: Purulent nasal drainage Neck: positive: Nml inspection, Thyroid nml, No JVD, Trachea midline. negative: Thyromegaly, Lymphadenopathy (R), Lymphadenopathy (L), Stiff neck, Tracheal deviation Respiratory: positive: Chest non-tender, No respiratory distress. negative: Wheezes, Rales, Rhonchi Cardiovascular: positive: Regular rate & rhythm, No murmur, No gallop. negative: Irregularly irregular, Extrasystoles, Tachycardia, Bradycardia, JVD present, Systolic murmur, Diastolic murmur Peripheral Pulses: positive: 2+ Abdomen: positive: Non-tender, No organomegaly, Nml bowel sounds, No distention. negative: Tenderness, Guarding, Rebound Back: positive: Nml inspection. negative: CVA tenderness (R), CVA tenderness (L) Skin: positive: Color nml, No rash, Warm, Dry. negative: Cyanosis, Diaphoresis, Pallor Extremities: positive: Non-tender, Full ROM, Nml appearance. negative: Calf tenderness, Pippa's sign/cords Neurologic/Psychiatric: positive: Oriented x3, Motor nml, Sensation nml. negative: Weakness, Sensory loss, Facial droop, Slurred/abnml speech, Depressed mood/affect - LABS Result Diagrams: 04/21/19 09:24 04/21/19 09:24 - FOLLOW UP Follow Up: RT had O2 desaturation study for you which indicate you can ambulate without obvious respiratory distress on NC of 3 liter of O2, advise you continue safely to use home oxygen as the schedule, breath treatment as the schedule as well. You are prescribed short term of steroid for your COPD. Levaquin is prescribed for you to finish the treatment course for your pneu monia. You may followup your PCP in one week, followup your Fifth Grade Teacher as out-pt. Should your symptoms return or worsen, you may present ER or call 911 for help. - TIME SPENT Time Spent in Discharge (Minutes): 40
[2019-04-22] MEDS ORDERED: methylPREDNISolone 4 MG TABLET PO SCH ×2 (08:00)
[2019-04-23] MEDS ORDERED: methylPREDNISolone 4 MG TABLET PO SCH ×2 (08:00)
[2019-04-24] MEDS ORDERED: methylPREDNISolone 4 MG TABLET PO SCH ×2 (08:00)
[2019-04-25] MEDS ORDERED: methylPREDNISolone 4 MG TABLET PO SCH ×2 (08:00)
== END 2019-04-21 14:59 | disposition home or self-care (01) | DRG 190 ==
LOC: ED 11:46 → MS2 13:38
PROVIDERS: ADMIT Specialist; ATTEND Nurse Practitioner Gerontology
DX: J43.9 Emphysema, unspecified (principal); J18.9 Pneumonia, unspecified organism; I10 Essential (primary) hypertension; R60.0 Localized edema; I11.9 Hypertensive heart disease without heart failure; K21.9 Gastro-esophageal reflux disease without esophagitis; K22.8 Other specified diseases of esophagus; K44.9 Diaphragmatic hernia without obstruction or gangrene; E78.00 Pure hypercholesterolemia, unspecified; M10.9 Gout, unspecified; H91.93 Unspecified hearing loss, bilateral; Z66 Do not resuscitate; Z99.81 Dependence on supplemental oxygen; Z79.82 Long term (current) use of aspirin; Z79.899 Other long term (current) drug therapy; Z79.51 Long term (current) use of inhaled steroids; Z79.52 Long term (current) use of systemic steroids; Z87.891 Personal history of nicotine dependence
CPT/HCPCS: 36415; 71045; 80048; 80053; 82803; 83605; 83690; 84484; 85025; 87040; 87070; 87077; 87181; 87205; 87275; 87276; 93005; 94640; 96365; 96375; 97161; 99285; 99291; A9270; J7509; J7626

== ENCOUNTER 2019-05-04 09:31 | Outpatient (CLI) | payer MEDICARE, OTHER ==
--- NOTE | 2019-05-04 16:09 | XRAY Report ---
Reason: GILDARDO pneumonia, COPD Procedure Date: 05/04/2019 Accession Number: [id number] / [id number] Procedure: XRN - Chest 2 View X-Ray CPT Code: 36668 Final Report FULL RESULT: EXAM: CHEST RADIOGRAPHY EXAM DATE: 05/04/2019 09:53 AM. CLINICAL HISTORY: GILDARDO pneumonia, COPD. COMPARISON: CHEST 1 VIEW 04/17/2019 12:08 PM CHEST W/O 10/31/2017 2:59 PM CHEST 2 VIEW 10/30/2017 12:34 PM. TECHNIQUE: 2 views. FINDINGS: Lungs/Pleura: 3 mm calcified granuloma laterally in the right upper lobe, as before. Otherwise clear without focal consolidation or interstitial abnormality. There is some rarefaction of lung markings particularly in the right upper lobe suggesting emphysema, as before. Given the apparent asymmetry in the emphysema, there is no definite left upper lobe consolidation. No pleural fluid or pneumothorax. Mediastinum: Heart and mediastinal contours are unremarkable. Other: None. IMPRESSION: 1. No convincing left upper lobe consolidation. 2. Asymmetric upper lobe emphysema right greater than left. 3. 3 mm calcified granuloma laterally in the right upper lobe, as before. 4. No new airspace opacities. RADIA
== END 2019-05-04 09:32 | disposition home or self-care (01) ==
LOC: DI.N 09:31
PROVIDERS: ATTEND Physician Assistant Medical
DX: J43.9 Emphysema, unspecified (principal); J84.10 Pulmonary fibrosis, unspecified
CPT/HCPCS: 71046

== ENCOUNTER 2019-07-30 08:00 | Outpatient (CLI) | payer MEDICARE, OTHER ==
[2019-07-30 13:28] LABS: BASOPHILS # (AUTO) 0.1 10^3/uL (0.0-0.1); BASOPHILS % (AUTO) 0.7 %; EOSINOPHILS # (AUTO) 0.1 10^3/uL (0.0-0.7); EOSINOPHILS % (AUTO) 1.3 %; HGB - HEMOGLOBIN 14.9 g/dL (14.0-18.0); LYMPHOCYTES # (AUTO) 1.9 10^3/uL (1.5-3.5); LYMPHOCYTES % (AUTO) 17.4 %; MEAN CORPUSCULAR HGB CONC 33.6 g/dL (32.0-36.0); MEAN CORPUSCULAR VOLUME 104.2 fL (80.0-94.0); MONOCYTES # (AUTO) 0.9 10^3/uL (0.0-1.0); MONOCYTES % (AUTO) 8.3 %; NEUTROPHILS # (AUTO) 7.4 10^3/uL (1.5-6.6); NEUTROPHILS % (AUTO) 69.2 %; PLT - PLATELET COUNT 197 10^3/uL (130-450); RED BLOOD COUNT 4.26 10^6/uL (4.70-6.10); RED CELL DISTRIBUTION WIDTH 13.1 % (12.0-15.0); WHITE BLOOD COUNT 10.7 x10^3/uL (4.8-10.8)
[2019-07-30 13:36] LABS: CALCIUM 9.2 mg/dL (8.5-10.3)
== END 2019-07-30 23:59 | disposition home or self-care (01) ==
LOC: LAB.WCP 08:00
PROVIDERS: ATTEND Physician Assistant Medical
DX: R42 Dizziness and giddiness (principal); E78.2 Mixed hyperlipidemia
CPT/HCPCS: 36415; 80048; 84443; 85025

== ENCOUNTER 2019-11-23 08:00 | Outpatient (CLI) | payer MEDICARE, OTHER ==
[2019-11-23 19:12] LABS: BASOPHILS # (AUTO) 0.1 10^3/uL (0.0-0.1); BASOPHILS % (AUTO) 0.6 %; EOSINOPHILS % (AUTO) 0.2 %; HGB - HEMOGLOBIN 14.8 g/dL (14.0-18.0); LYMPHOCYTES # (AUTO) 0.7 10^3/uL (1.5-3.5); MEAN CORPUSCULAR HEMOGLOBIN 34.8 pg (27.0-31.0); MEAN CORPUSCULAR HGB CONC 32.7 g/dL (32.0-36.0); MEAN CORPUSCULAR VOLUME 106.6 fL (80.0-94.0); MONOCYTES # (AUTO) 0.5 10^3/uL (0.0-1.0); MONOCYTES % (AUTO) 4.5 %; NEUTROPHILS # (AUTO) 10.1 10^3/uL (1.5-6.6); NEUTROPHILS % (AUTO) 86.8 %; PLT - PLATELET COUNT 197 10^3/uL (130-450); RED BLOOD COUNT 4.25 10^6/uL (4.70-6.10); RED CELL DISTRIBUTION WIDTH 13.3 % (12.0-15.0); WHITE BLOOD COUNT 11.6 x10^3/uL (4.8-10.8)
[2019-11-23 20:16] LABS: ALBUMIN 4.5 g/dL (3.2-5.5); ALBUMIN/GLOBULIN RATIO 1.7 (1.0-2.2); ALKALINE PHOSPHATASE 42 IU/L (42-121); ALT ALANINE AMINOTRANSFERASE 22 IU/L (10-60); AST ASPARTATE AMINOTRANSFERASE 28 IU/L (10-42); BILIRUBIN,TOTAL 1.4 mg/dL (0.2-1.0); BUN - BLOOD UREA NITROGEN 16 mg/dL (6-20); CALCIUM 9.2 mg/dL (8.5-10.3); CARBON DIOXIDE - CO2 26 mmol/L (21-32); CHLORIDE 98 mmol/L (101-111); CHOLESTEROL 261 mg/dL; CREATININE 0.9 mg/dL (0.6-1.2); GLUCOSE 100 mg/dL (70-100); HDL CHOLESTEROL 142 mg/dL; SODIUM 138 mmol/L (135-145); TOTAL PROTEIN 7.1 g/dL (6.7-8.2); VLDL CHOLESTEROL 15 mg/dL
[2019-11-23 20:17] LABS: CHOL/HDL RATIO 1.8 (<5.0); LDL CHOLESTEROL,CALCULATED 104 mg/dL; LDL/HDL RATIO 0.7 (<3.6)
== END 2019-11-23 08:01 | disposition home or self-care (01) ==
LOC: LAB.WCP 08:00
PROVIDERS: ATTEND Family Medicine
DX: E07.9 Disorder of thyroid, unspecified (principal); I10 Essential (primary) hypertension
CPT/HCPCS: 36415; 80053; 80061; 83721; 84443; 85025

== ENCOUNTER 2019-12-03 11:48 | Outpatient (CLI) | payer MEDICARE, OTHER ==
--- NOTE | 2019-12-03 12:17 | XRAY Report ---
PROCEDURE: Chest 2 View X-Ray INDICATIONS: PRODUCTIVE COUGH TECHNIQUE: 2 view(s) of the chest. COMPARISON: 05/04/2019 chest radiographs. FINDINGS: Surgical changes and devices: None. Lungs and pleura: Patchy consolidative airspace opacity in the left lung base in the peripheral right middle and lower lobes. Findings are new from the most recent prior study obtained 05/04/2019. No vis ible pleural effusion or findings of pneumothorax. Mediastinum: Mediastinal contours are normal. Heart size is normal. Bones and chest wall: No suspicious bony abnormalities. Soft tissues appear unremarkable. IMPRESSION: Bilateral airspace opacities which in the setting of productive cough are suspicious for pneumonia. Follow-up to both clinical and radiographic resolution recommended. Reviewed by: Nima Sheehan MD on 12/03/2019 12:15 PM PDT Approved by: Nima Sheehan MD on 12/03/2019 12:15 PM PDT Station ID: [id number]
== END 2019-12-03 11:49 | disposition home or self-care (01) ==
LOC: DI 11:48
PROVIDERS: ATTEND Family Medicine
DX: R05 Cough (principal)
CPT/HCPCS: 71046

== ENCOUNTER 2019-12-17 12:30 | Outpatient (CLI) | payer MEDICARE, OTHER ==
[2019-12-17 18:59] LABS: BASOPHILS # (AUTO) 0.1 10^3/uL (0.0-0.1); BASOPHILS % (AUTO) 0.5 %; HGB - HEMOGLOBIN 14.7 g/dL (14.0-18.0); LYMPHOCYTES # (AUTO) 0.5 10^3/uL (1.5-3.5); LYMPHOCYTES % (AUTO) 4.6 %; MEAN CORPUSCULAR HEMOGLOBIN 35.4 pg (27.0-31.0); MEAN CORPUSCULAR VOLUME 107.5 fL (80.0-94.0); MEAN PLATELET VOLUME 11.1 fL (7.4-11.4); MONOCYTES # (AUTO) 0.4 10^3/uL (0.0-1.0); MONOCYTES % (AUTO) 3.7 %; PLT - PLATELET COUNT 200 10^3/uL (130-450); RED BLOOD COUNT 4.15 10^6/uL (4.70-6.10); RED CELL DISTRIBUTION WIDTH 13.2 % (12.0-15.0); WHITE BLOOD COUNT 11.4 x10^3/uL (4.8-10.8)
== END 2019-12-17 23:59 | disposition home or self-care (01) ==
LOC: LAB.WCP 12:30
PROVIDERS: ATTEND Family Medicine
DX: J18.9 Pneumonia, unspecified organism (principal)
CPT/HCPCS: 36415; 85025

== ENCOUNTER 2020-08-31 07:02 | Outpatient (CLI) | payer MEDICARE, OTHER | END 2020-08-31 07:03 | disposition critical access hospital (66) | LOC: EMS 07:02 | DX: R04.2 Hemoptysis (principal); R06.00 Dyspnea, unspecified | CPT/HCPCS: A0425; A0429 ==

== ENCOUNTER 2020-08-31 07:16 | Emergency (ER) | payer MEDICARE, OTHER ==
[~2020-08-31 07:16] MED LIST: FUROSEMIDE 100 MG/10 ML VIAL IVP STA
[2020-08-31] MEDS ORDERED: MORPHINE 10 MG/ML VIAL IVP STA (07:20)
[2020-08-31] MEDS ORDERED: FUROSEMIDE 100 MG/10 ML VIAL ONE (07:24)
[2020-08-31] MEDS ORDERED: MORPHINE 10 MG/ML VIAL ONE (07:28)
[2020-08-31] MEDS ORDERED: NITROGLYCERIN 2% PASTE TOP ONE (07:28)
[2020-08-31] MEDS ORDERED: LORazepam 2 MG/ML VIAL IVP STA (07:36)
[2020-08-31] MEDS ORDERED: LORazepam 2 MG/ML VIAL ONE (07:38)
[2020-08-31 07:42] LABS: ABG BASE EXCESS -1.6 mmol/L (-2.0-3.0); ABG HCO3 25.4 mmol/L (22.0-26.0); ABG PCO2 51 mmHg (34-45); ABG PH 7.32 (7.35-7.45); ABG TCO2 26.9 MMOL/L (21.0-29.0); ALLEN TEST POSITIVE
[2020-08-31 07:43] LABS: ABG MODE OF VENTILATION SYNCHRONOUS/TIMES; ABG RESPIRATORY RATE 20 b/min
[2020-08-31 07:46] LABS: ABG OXYGEN SATURATION 60 % (94-98); ABG PO2 33 mmHg (80-100)
[2020-08-31] MEDS ORDERED: NITROGLYCERIN 2% PASTE TOP STA (07:48)
[2020-08-31] MEDS ORDERED: SUCCINYLCHOLINE 200 MG/10 ML VIAL IVP STA (07:48)
[2020-08-31] MEDS ORDERED: VECURONIUM 10 MG VIAL ONE ×2 (07:51→08:25)
[2020-08-31] MEDS ORDERED: SUCCINYLCHOLINE 200 MG/10 ML VIAL ONE (07:52)
[2020-08-31] MEDS ORDERED: VECURONIUM 10 MG VIAL IVP STA ×2 (07:54→08:26)
[2020-08-31] MEDS ORDERED: ASPIRIN 300 MG SUPP PR ONE (07:59)
[2020-08-31 08:00] LABS: BASOPHILS # (AUTO) 0.1 10^3/uL (0.0-0.1); BASOPHILS % (AUTO) 0.6 %; EOSINOPHILS % (AUTO) 0.5 %; HCT - HEMATOCRIT 51.2 % (42.0-52.0); HGB - HEMOGLOBIN 16.8 g/dL (14.0-18.0); LYMPHOCYTES # (AUTO) 0.9 10^3/uL (1.5-3.5); MEAN CORPUSCULAR HEMOGLOBIN 34.9 pg (27.0-31.0); MEAN CORPUSCULAR HGB CONC 32.8 g/dL (32.0-36.0); MEAN CORPUSCULAR VOLUME 106.4 fL (80.0-94.0); MEAN PLATELET VOLUME 10.9 fL (7.4-11.4); MONOCYTES # (AUTO) 0.4 10^3/uL (0.0-1.0); MONOCYTES % (AUTO) 4.7 %; NEUTROPHILS # (AUTO) 6.5 10^3/uL (1.5-6.6); NRBC ABSOLUTE COUNT (AUTO) 0.07 x10^3/uL; NUCLEATED RED BLOOD CELLS AUTO 0.9 /100WBC; PLT - PLATELET COUNT 219 10^3/uL (130-450); RED BLOOD COUNT 4.81 10^6/uL (4.70-6.10); RED CELL DISTRIBUTION WIDTH 13.1 % (12.0-15.0); WHITE BLOOD COUNT 8.2 x10^3/uL (4.8-10.8)
[2020-08-31] MEDS ORDERED: HEPARIN 25000UNITS/500ML (D5W) 25,000 UNIT/500 ML BAG IV SCH (08:00)
[2020-08-31] MEDS ORDERED: ASPIRIN 300 MG SUPP PR STA (08:04)
[2020-08-31 08:06] LABS: D-DIMER > 1050.0 ng/mL (200.0-255.0)
[2020-08-31 08:15] LABS: BILIRUBIN,TOTAL 1.2 mg/dL (0.2-1.0); CALCIUM 8.8 mg/dL (8.5-10.3); CREATININE 1.6 mg/dL (0.6-1.2); POTASSIUM 4.9 mmol/L (3.5-5.0)
[2020-08-31 08:16] LABS: ALBUMIN 3.8 g/dL (3.2-5.5); ALBUMIN/GLOBULIN RATIO 1.5 (1.0-2.2); TOTAL PROTEIN 6.4 g/dL (6.7-8.2)
--- NOTE | 2020-08-31 08:24 | XRAY Report ---
PROCEDURE: Chest for Line Placement INDICATIONS: Line placement check S/P intubation TECHNIQUE: One view of the chest was acquired. COMPARISON: Chest single view earlier same day. FINDINGS: Surgical changes and devices: Dense pneumonia right mid and lower lung, endotracheal tube tip is appr oximately. 1 cm below the medial clavicular heads, normal position. Central line is not seen.. Lungs and pleura: No pleural effusions or pneumothorax. Lungs are abnormal with right mid and lower lung pneumonia.. Mediastinum: Mediastinal contours appear normal. Heart size is normal. Bones and chest wall: No suspicious bony lesions. Overlying soft tissues appear unremarkable. IMPRESSION: Right mid and lower lung pneumonia, dense. No change from earlier same day. Central line not seen. En dotracheal tube appears in normal position. Reviewed by: Andrey Rendon MD on 08/31/2020 8:23 AM PDT Approved by: Andrey Rendon MD on 08/31/2020 8:23 AM PDT Station ID: [id number]
--- NOTE | 2020-08-31 08:26 | XRAY Report ---
PROCEDURE: Chest 1 View X-Ray INDICATIONS: SOB, Low O2. TECHNIQUE: One view of the chest was acquired. COMPARISON: Single view chest same day. FINDINGS: Surgical changes and devices: None. Lungs and pleura: No pleural effusions or pneumothorax. Lungs are abnormal, with dense pneumonia ri ght mid and lower lung.. Mediastinum: Mediastinal contours appear normal. Heart size is normal. Bones and chest wall: No suspicious bony lesions. Overlying soft tissues appear unremarkable. IMPRESSION: Dense pneumonia right mid and lower lung. No pleural effusion or central mass seen. Reviewed by: Andrey Rendon MD on 08/31/2020 8:25 AM PDT Approved by: Andrey Rendon MD on 08/31/2020 8:25 AM PDT Station ID: [id number]
[2020-08-31 08:29] LABS: PT - PROTHROMBIN TIME 11.4 secs (9.9-12.6)
[2020-08-31 08:35] VITALS: BP 92/82
[2020-08-31 08:36] LABS: ABG HCO3 27.1 mmol/L (22.0-26.0); ABG MODE OF VENTILATION SIMV; ABG PCO2 54 mmHg (34-45); ABG PH 7.31 (7.35-7.45); ABG PO2 57 mmHg (80-100); ALLEN TEST POSITIVE
[2020-08-31 08:37] LABS: ABG RESPIRATORY RATE 22 b/min
[2020-08-31 08:38] LABS: ABG OXYGEN SATURATION 86 % (94-98)
--- NOTE | 2020-08-31 08:45 | XRAY Report ---
PROCEDURE: Chest for Line Placement INDICATIONS: Central Line placement TECHNIQUE: One view of the chest was acquired. COMPARISON: To prior chest plain films earlier same day. FINDINGS: Surgical changes and devices: In addition to the endotracheal tube previously present a central line has been placed from right-sided approach which extends to the thoracic inlet level not clearly into the superior vena cava. The exact positioning anatomically is indeterminate from this plain film Lung s and pleura: No pleural effusions or pneumothorax. Lungs are unchanged with dense pneumonia over t he mid and lower right lung. Reduced inspiratory volume. Mediastinum: Mediastinal contours appear normal. Heart size is normal. Bones and chest wall: No suspicious bony lesions. Overlying soft tissues appear unremarkable. IMPRESSION: Reduced inspiration, no pneumothorax. Stable dense pneumonia right lung. New central line has been pl aced, but its tip positioning is indeterminate, and it does not appear to enter the superior vena cav a by positioning. Please correlate clinically and noncontrast CT scanning can accurately established tip positioning. Reviewed by: Andrey Rendon MD on 08/31/2020 8:44 AM PDT Approved by: Andrey Rendno MD on 08/31/2020 8:44 AM PDT Station ID: [id number]
--- NOTE | 2020-08-31 09:01 | ED Physician Documentation ---
PD HPI DYSPNEA - Stated complaint Stated Complaint: SOA - Chief complaint Chief Complaint: Resp - History obtained from History obtained from: EMS - Additional information Additional information: Patient is brought to the emergency department by EMS for chief complaint of severe dyspnea. The patient is not able to give any information because he is in severe respiratory distress, but medics report that patient has been having symptoms of increasing dyspnea since yesterday evening. They do not know if the patient has had chest pain because he has been in such severe respiratory distress that they did not ask many questions. Patient has a history of COPD and CHF and is home oxygen dependent at 2 L. As far as they know the patient does not use CPAP or nebulizer machine. He was given a neb in route which does not seem to have helped. Sats were initially in the 60s on room air when they picked him up and are now in the 70s on 100% O2 via nebulizer. Review of Systems Unable to obtain: Other (Unobtainable secondary to severe respiratory distress and altered level of consciousness.) PD PAST MEDICAL HISTORY - Past Medical History Cardiovascular: Hypertension, High cholesterol, Other Respiratory: COPD (sees Sonali Suh MD at [facility] Pulmonology. PFTs January 2019: FVC 3.97 (101%), FEV1 1.89 L (67%), FEV1/FVC is 47 (65%). 10% improvement with bronchodilator therapy of FEV1. SVC 3.97 (94%). DLCO 11.66 which is 39% of predicted. Mild to moderate obstructive lung disease with limited evidence of benefit of bronchodilator therapy. Significant disease of the capillary alveolar level.), Emphysema (CT pulmonary angiogram done December [address] and negative. Severe on CT scans in the past. Also has chronic left upper lung nodule that is been followed on several CTs. Stable size.), Pneumonia, Other Neuro: None Endocrine/Autoimmune: None GI: GERD (Aspiration pneumonia January 2018 resulted in barium swallow. Decreased delayed esophageal peristalsis. Intermittent tertiary contractions. Occasional retropulsion of contrast material but no elicited GERD. Small moderate hiatal hernia.), Ulcers (in the past), Other (diverticulosis) : Benign prostate hypertrophy (probable with nocturia, slow stream, erectile dysfunction), Nocturia HEENT: Chronic vision loss (wears glasses), Chronic hearing loss (wears hearing aids) Psych: None, Other Musculoskeletal: Osteoarthritis, Gout, Other Derm: None - Past Surgical History Past Surgical History: Yes General: Appendectomy, Colonoscopy Ortho: Other HEENT: Tonsil/Adenoidectomy - Present Medications Home Medications: Ambulatory Orders Medication Instructions Recorded Confirmed Aspirin [Aspir 81] 81 mg PO DAILY 08/18/12 04/17/19 Allopurinol [Zyloprim] 300 mg PO DAILY 02/13/16 04/17/19 Cholecalciferol (Vitamin D3) 2,000 unit PO DAILY 02/13/16 04/17/19 [Vitamin D3] Cyanocobalamin (Vitamin B-12) 1,000 mcg PO DAILY 02/13/16 04/17/19 [Vitamin B-12] Felodipine [Felodipine ER] 10 mg PO DAILY 02/13/16 04/17/19 Ferrous Gluconate [Iron] 65 mg PO DAILYWM 02/13/16 04/17/19 [place]-3/Dha/Epa/Fish Oil [Fish Oil 1 cap PO DAILY 02/13/16 04/17/19 1,000 mg Softgel] Simvastatin [Zocor] 10 mg PO QPM 02/13/16 04/17/19 Albuterol 2.5 mg INH Q4H PRN 04/17/19 04/17/19 Albuterol Sulfate [Proair Hfa 2 puffs INH Q4H PRN 04/17/19 04/17/19 Inhaler] Diclofenac Sodium 2 g TOP BID PRN 04/17/19 04/17/19 Duloxetine HCl 60 mg PO DAILY 04/17/19 04/17/19 Fluticasone/Salmeterol [Advair 1 puffs INH BID 04/17/19 04/17/19 250-50 Diskus] Loratadine [Claritin] 10 mg PO DAILY 04/17/19 04/17/19 Montelukast [Singulair] 10 mg PO QPM 04/17/19 04/17/19 Omeprazole 20 mg PO BID 04/17/19 04/17/19 Sildenafil Citrate [Viagra] 100 mg PO DAILY PRN 04/17/19 04/17/19 Tiotropium [place] [Spiriva 2 puffs INH DAILY 04/17/19 04/17/19 Respimat] polyethylene glycoL 3350 [Miralax] 17 gm PO DAILY PRN 04/17/19 04/17/19 predniSONE [Deltasone] 10 mg PO DAILYWM 04/17/19 04/17/19 traZODone [Desyrel] 50 mg PO HS PRN 04/17/19 04/17/19 levoFLOXacin [Levaquin] 750 mg PO DAILY #3 tablet 04/21/19 methylPREDNISolone [Medrol] 4 mg PO DAILYWM #1 tablet 04/21/19 methylPREDNISolone [Medrol] 8 mg PO DAILYWM #1 tablet 04/21/19 methylPREDNISolone [Medrol] 12 mg PO DAILYWM #1 tablet 04/21/19 methylPREDNISolone [Medrol] 16 mg PO DAILYWM #1 tablet 04/21/19 - Allergies Allergies/Adverse Reactions: Allergies Allergy/AdvReac Type Severity Reaction Status Date / Time No Known Drug Allergies Allergy Verified 04/17/19 12:03 - Social History Does the pt smoke?: No Smoking Status: Former smoker Does the pt drink ETOH?: Yes Does the pt have substance abuse?: No - Immunizations Immunizations are current?: Yes - POLST Patient has POLST: No POLST Status: Full Code PD ED PE NORMAL - Vitals Vital signs reviewed: Yes - General General: Other (Ill-appearing male who is in severe respiratory distress. He is awake, but unable to focus and answer questions.) - HEENT HEENT: Atraumatic, PERRL, Moist mucous membranes - Neck Neck: Supple, no meningeal sign - Cardiac Cardiac: No murmur, Strong equal pulses, Other (Tachycardic rate regular rhythm no murmurs) - Respiratory Respiratory: Other (Rales throughout bilateral lung orta. Severe respiratory distress with inability to speak and altered level of consciousness.) - Abdomen Abdomen: Soft, Non tender, Non distended - Derm Derm: Other (Dusky, diaphoretic.) - Extremities Extremities: No deformity, No edema - Neuro Neuro: Other (Awake, not able to mentally focus. Does not respond to touch or to his name being said. Moving all 4 extremities grossly.) - Psych Psych: Normal mood, Normal affect Results - Vitals Vitals: Vital Signs - 24 hr 08/31/20 08/31/20 08/31/20 07:29 07:30 08:00 Temperature 37.2 C Heart Rate 138 H 148 H 145 H Respiratory 36 H 27 H 11 L Rate Blood Pressure 89/50 L 91/74 92/82 H O2 Saturation 66 L 82 L 89 L Oxygen O2 Source Mechanical ventilator - EKG (time done) No standard instances Rate: Tachy Rhythm: Sinus tachycardia Ischemia: ST elevation c/w ischemia (AVR), ST depression (c/w posterior reciprocal changes: V3-6), T wave inversion Other comments: Other comments (Posterior STEMI with lateral involvement) Compare to prior EKG: Old EKG unavailable Computer interpretation: Agree with computer - Labs Labs: Laboratory Tests 08/31/20 08/31/20 08/31/20 07:30 07:49 07:49 WBC 8.2 RBC 4.81 Hgb 16.8 Hct 51.2 MCV 106.4 H MCH 34.9 H MCHC 32.8 RDW 13.1 Plt Count 219 MPV 10.9 Neut # (Auto) 6.5 Lymph # (Auto) 0.9 L Harvey # (Auto) 0.4 Eos # (Auto) 0.0 Baso # (Auto) 0.1 Absolute Nucleated RBC 0.07 Nucleated RBC % 0.9 PT 11.4 INR 1.0 D-Dimer > 1050.0 H Bld Gas Analysis Time 0734 Sample Site RIGHT BRACHIAL ABG pH 7.32 L ABG pCO2 51 H ABG pO2 33 L* ABG HCO3 25.4 ABG Total CO2 26.9 ABG O2 Saturation 60 L* ABG Base Excess -1.6 Roly Test POSITIVE Respiration Rate 20 O2 Delivery Device BiPAP Vent Mode SYNCHRONOUS/TIMES FiO2 10.00 Tidal Volume PEEP Pressure Support Vent EPAP 5 IPAP 15 Sodium Potassium Chloride Carbon Dioxide Anion Gap BUN Creatinine Estimated GFR (MDRD) Glucose Calcium Total Bilirubin AST ALT Alkaline Phosphatase Troponin I High Sens B-Natriuretic Peptide Total Protein Albumin Globulin Albumin/Globulin Ratio Lipase 08/31/20 08/31/20 08/31/20 07:49 07:49 07:49 WBC RBC Hgb Hct MCV MCH MCHC RDW Plt Count MPV Neut # (Auto) Lymph # (Auto) Harvey # (Auto) Eos # (Auto) Baso # (Auto) Absolute Nucleated RBC Nucleated RBC % PT INR D-Dimer Bld Gas Analysis Time Sample Site ABG pH ABG pCO2 ABG pO2 ABG HCO3 ABG Total CO2 ABG O2 Saturation ABG Base Excess Roly Test Respiration Rate O2 Delivery Device Vent Mode FiO2 Tidal Volume PEEP Pressure Support Vent EPAP IPAP Sodium 139 Potassium 4.9 Chloride 104 Carbon Dioxide 22 Anion Gap 13.0 BUN 18 Creatinine 1.6 H Estimated GFR (MDRD) 42 L Glucose 119 H Calcium 8.8 Total Bilirubin 1.2 H AST 31 ALT 19 Alkaline Phosphatase 41 L Troponin I High Sens 200.9 H* B-Natriuretic Peptide 95 Total Protein 6.4 L Albumin 3.8 Globulin 2.6 Albumin/Globulin Ratio 1.5 Lipase 36 08/31/20 08:25 WBC RBC Hgb Hct MCV MCH MCHC RDW Plt Count MPV Neut # (Auto) Lymph # (Auto) Harvey # (Auto) Eos # (Auto) Baso # (Auto) Absolute Nucleated RBC Nucleated RBC % PT INR D-Dimer Bld Gas Analysis Time 0833 Sample Site LEFT RADIAL ABG pH 7.31 L ABG pCO2 54 H ABG pO2 57 L ABG HCO3 27.1 H ABG Total CO2 29.0 ABG O2 Saturation 86 L* ABG Base Excess 1.0 Roly Test POSITIVE Respiration Rate 22 O2 Delivery Device VENTILATOR Vent Mode SIMV FiO2 100.00 Tidal Volume 450 PEEP 5 Pressure Support Vent 10 EPAP IPAP Sodium Potassium Chloride Carbon Dioxide Anion Gap BUN Creatinine Estimated GFR (MDRD) Glucose Calcium Total Bilirubin AST ALT Alkaline Phosphatase Troponin I High Sens B-Natriuretic Peptide Total Protein Albumin Globulin Albumin/Globulin Ratio Lipase - Rads (name of study) CXR 1 Radiology: Final report received, EMP read indepedently (CHF with pulmonary edema vs pneumonia) CXR 2 Radiology: Final report received, EMP read indepedently (ET tube in good placement) CXR 3 Radiology: Final report received, EMP read indepedently (IJ central line noted; tip obscured by landmarks just inferior to clavicle.) Procedures - Intubation Provider: Emergency physician Medications: Ativan, Succinylcholine, Vecuronium Blade: Gaines Tube: Size-enter number (7.5), Cuffed, Marked at teeth-enter cm (22) Route: Oral Confirmation: Direct visualization, Bilateral breath sounds, No abdominal breath sound, End tidal CO2, Pulse ox, Chest xray Complications: No compications - Central Line Central Line Preparation: Unable to obtain consent, Sterile prep and drape Central line location: Right IJ (Good return of dark, venous-appearing blood, with brisk dripping c/w increased central venous pressure. No pulsation. Guidewire and catheter threaded without difficulty.) Central line type: Triple lumen Central line aftercare: Secured, Placement confirmed, No pneumothorax, No complications, Pt tolerated well, Other PD MEDICAL DECISION MAKING - ED course Complexity details: reviewed old records, reviewed results, re-evaluated patient, considered differential ED course: This patient was critically ill and in severe respiratory distress upon arrival. Given that he was still awake, we did do a trial of BiPAP and patient did improve somewhat initially. His oxygen saturation came up to the mid 80s to low 90s for a time, though he did continue to be quite tachypneic and tachycardic. He was immediately given Lasix 100 mg IV and an inch of Nitropaste, as I suspected an acute CHF exacerbation as his primary cause of dyspnea, on top of the underlying COPD. Chest x-ray did confirm pulmonary edema by my interpretation. EKG was performed after we were able to get the patient's respiratory status somewhat stabilized, and did show concerning ST depressions in lead V3, V4, V5, and V6, as well as ST elevations in aVR. I felt that this could represent a posterior wall [place] with lateral involvement, and EKG computer read also confirm this. I spoke with Dr. Bustamante at [facility], he did accept the patient in transfer. The patient despite initial improvement on BiPAP was continuing to be extremely tachypneic and was after a period of being able to speak a little, becoming altered again. ABG while on BiPAP had showed a pH of 7.318, PCO2 of 50.6, and PO2 of 32.7 with an oxygen saturation of 60%. His oxygen saturations had dropped back into the mid 80s on BiPAP and at this point, I felt he had failed BiPAP and needed intubation. The patient was intubated as above with a 7.5 tube and this was found to be in good placement in the trachea following intubation. Repeat ABG following intubation did show improvement in oxygenation, and oxygen saturation did improve initially to the low to mid 90s, though began drifting down again into the mid to upper 80s. The patient was at a respiratory rate of 22 per ventilator and PCO2 and pH were fairly unchanged from the initial ABG. The patient was on 5 of PEEP, but I was concerned because he had become hypotensive and although the PEEP might help his oxygenation, I was concerned it would drop his blood pressure even further. At this point in time, we did decide to leave the settings as they were for the time-being, as I was planning to start vasopressors and a better pressure might allow for increased PEEP, once achieved. I did place a triple-lumen catheter in the patient's right IJ, as above, and patient was started on heparin drip. He was also given rectal aspirin. The [employer] crew, in order to expedite the patient's departure and transport to [facility], did offer their own supply of Levophed so that we would not have to wait for pharmacy to mix a bag here. I felt this was reasonable. The patient did not deteriorate any further while in the ED. His troponin did come back at 200, which was not surprising. All x-rays were interpreted by myself, at time of performance of study, due to the patient's extremely critical condition and the need for immediate decision-making and action, based on the imaging. - Critical Care Time(min): 90 Comments: Critical care time was necessary, secondary to an active, ongoing, life- threatening condition with high probability of imminent decline and . My direct attention, intervention and management was required continuously to prevent decline and of the patient, during the time of critical care. Time Includes: Direct patient care, Review records, Reassess patient, Document care, Coordinate care, Medical consult, See progress note Data interpretation: Labs, Pulse ox, ABG, CXR, Cardiac output, See progress note Procedures included in critical care time: Ventilator mgmt, See progress note Procedures excluded from critical care time: Central IV, Intubation, EKG Departure - Departure Disposition: 02 Transfer Acute Care Hosp Clinical Impression: Shock Respiratory failure Qualifiers: Chronicity: acute Respiratory failure complication: hypoxia Qualified Code(s): J96.01 - Acute respiratory failure with hypoxia STEMI (ST elevation myocardial infarction) Qualifiers: Involved coronary artery: unspecified coronary artery Qualified Code(s): I21.3 - ST elevation (STEMI) myocardial infarction of unspecified site Acute exacerbation of CHF (congestive heart failure) Qualifiers: Heart failure type: unspecified Qualified Code(s): I50.9 - Heart failure, u nspecified Condition: Critical Discharge Date/Time: 08/31/20 09:05
== END 2020-08-31 09:58 | disposition short-term general hospital (02) ==
LOC: EDUNIT# → ED 07:16
DX: I21.3 ST elevation (STEMI) myocardial infarction of unspecified site (principal); I11.0 Hypertensive heart disease with heart failure; I50.1 Left ventricular failure, unspecified; J44.9 Chronic obstructive pulmonary disease, unspecified; J96.01 Acute respiratory failure with hypoxia; Z99.81 Dependence on supplemental oxygen; Z87.891 Personal history of nicotine dependence; R00.0 Tachycardia, unspecified; R57.9 Shock, unspecified
CPT/HCPCS: 31500; 36415; 36556; 36600; 71045; 80053; 82803; 83690; 83880; 84484; 85025; 85379; 85610; 93005; 96374; 96375; 99291; 99292; A9270; J0330; J1940; J2060

== ENCOUNTER 2020-08-31 08:59 | Outpatient (CLI) | payer MEDICARE, OTHER | END 2020-08-31 09:00 | disposition short-term general hospital (02) | LOC: EMS 08:59 | PROVIDERS: ATTEND Emergency Medicine | DX: I21.3 ST elevation (STEMI) myocardial infarction of unspecified site (principal); J96.90 Respiratory failure, unspecified, unspecified whether with hypoxia or hypercapnia; I50.9 Heart failure, unspecified | CPT/HCPCS: A0425; A0426 ==